=== PATIENT | male | born 1965 | race Caucasian/White ===

== ENCOUNTER 2022-11-19 13:41 | Emergency (ER) | payer MEDICAID, SELFPAY ==
[2022-11-19 13:43] VITALS: BP 169/82; PULSE 98; RESP 18; TEMP 36.2; O2SAT 98; BMI 26.9
--- NOTE | 2022-11-19 13:48 | ED.VIS.BACK ---
HPI History of Present Illness Chief Complaint: Neuro S/Sx [facility] Medical History (Updated 11/19/22 @ 13:52 by Vicky Hastings) Arthritis Bulging disc Diabetes Neuropathy Home Medications amitriptyline 25 mg tablet 25 mg PO DAILY PRN sleep 11/19/22 [History Last Taken Unknown] duloxetine 30 mg capsule,delayed release 30 mg PO DAILY 11/19/22 [History Last Taken Unknown] glipizide 5 mg tablet 5 mg PO DAILY 11/19/22 [History Last Taken Unknown] Allergy/AdvReac Type Severity Reaction Status Date / Time No Known Allergies Allergy Verified 11/19/22 13:43 Family History (Updated 11/19/22 @ 13:52 by Vicky Hastings) Father Diabetes Social History (Updated 11/19/22 @ 13:52 by Vicky Hastings) household members: none current occupational status: employed Smoking Status: Current every day smoker tobacco type: cigarettes EXAM Physical Exam Const Vital Signs: 11/19/22 13:43 11/19/22 13:49 11/19/22 13:53 Temperature 97.1 F L Temperature Source Temporal Pulse Rate 98 Respiratory Rate 18 Respiratory Effort Normal Blood Pressure 169/82 H 166/84 H Blood Pressure Mean 111 111 Pulse Ox 98 Oxygen Delivery Method Room Air Room Air 11/19/22 14:45 11/19/22 16:40 Temperature Temperature Source Pulse Rate 83 76 Respiratory Rate 18 18 Respiratory Effort Blood Pressure 176/88 H Blood Pressure Mean 117 Pulse Ox 95 Oxygen Delivery Method Room Air MDM MDM MDM Narrative Medical decision making narrative: HISTORY OF PRESENT ILLNESS: 57-year-old male here with concern for decreased strength in the left hand, noted blurry vision right eye as well as cough as well as pain to his back and legs and dizziness. He states visual changes started approximatley 1 week ago. He notes other associated symptoms started shortly thereafter. LKW 1 week ago. Since then symptoms have been constant. NO dizziness currently. Denies any head trauma. Notes history of diabetes denies any history of heart attack, hyperlipidemia or hypertension. No family or personal hx of intracranial aneurysms. No hx of connective tissue disorders. Patient denies any saddle anesthesia, urinary retention, bowel or bladder incontinence, lower extremity weakness, fever or IV drug use, no recent spinal manipulation or surgery, no recent urinary catheterization. REVIEW OF SYSTEMS: Pertinent positives: Dizziness, left hand weakness, blurry vision, back pain Pertinent negatives: Head trauma PHYSICAL EXAM: Nursing triage notes reviewed, Vital signs reviewed Constitutional: please see mdm HENT: MMM Eyes: Pupils equal round and reactive to light, Extraocular muscles intact, visual basilio intact (no visual field deficits). POCUS ultrasound showed no evidence of vitreous hemorrhage or retinal detachment. Visual acuity 20/100 OS, 20/50 OD. scleral non-injected. Neck: No stridor, no JVD, full neck ROM Lungs: Clear to auscultation, No wheezing or rales. No increased work of breathing, no conversational dyspnea, no accessory muscle use, no nasal flaring. No respiratory distress noted Heart: Regular rate and rhythm, No murmurs, No rubs and No gallops, 2+ distal pulses (radial, femoral, posterior tibial) in all extremities Abdomen: Soft, there is no tenderness, rigidity, rebound or guarding, no obvious peritoneal signs, no palpable pulsatile abdominal masses, no auscultated abdominal bruit : No CVAT Extremities: No edema Neuro: N alert and oriented x3, neuro exam at baseline, cranial nerves II through XII are intact. No pain with extraocular muscle movement. There is negative test of skew. 5 of 5 strength in upper and lower extremities in flexion extension. Intact sensation to light touch in upper and lower extremity dermatomes. No truncal or extremity ataxia. No dysdiadochokinesia. Normal gait. 2+ reflexes in upper and lower extremities. No meningeal signs. Negative Babinski. NIH of 0. Intact sensation L1-S1 dermatomal distributions. Intact 5/5 strength in hip flexion (T12-L3). Knee extension (L2-L4). Ankle dorsiflexion (L4-L5). Ankle plantar flexion (S1). Great toe extension (L5). 2+ patellar and Achilles DTRs. Skin: No rash or lesions noted MEDICAL DECISION MAKING: Chief Complaint: Right-sided changes in vision, back pain External records reviewed: No recent ED visits or hospitalizations noted Factors affecting care: Type 2 diabetes Social determinants of health: positive marijuana use History obtained from others: none Consults: none ALL IMAGES (IF OBTAINED) HAVE BEEN PERSONALLY REVIEWED AND INTERPRETED BY MYSELF. EKG with normal sinus rhythm, normal axis, no intervals, no STEMI, no atrial fibrillation CBC without leukocytosis, severe anemia, no thrombocytopenia. No coagulopathy BMP with mild hyponatremia otherwise no significant electrolyte abnormalities, no anion gap, no acute kidney injury Troponin is negative, no evidence of myocardial ischemia I have personally reviewed the patient's chest x-ray. Chest x-ray is unremarkable for pulmonary edema, pneumothorax, pneumonia or focal cardiopulmonary abnormality. COVID/flu negative MDM Narrative: Patient was initially hypertensive, otherwise hemodynamically stable. I considered the following differential diagnosis: ICH, large vessel occlusion, retinal detachment, vitreous hemorrhage CVA, TIA I obtained a broad lab and imaging work-up to further elucidate the etiology of the patient's complaints. POCUS ultrasound showed no evidence of vitreous hemorrhage or retinal detachment. EKG was nonischemic, no arrhythmia genic, no A-fib Labs without evidence of significant anemia, electrolyte abnormalities, coagulopathy or myocardial ischemia to explain the patient's symptoms. CTA of the head and neck shows no acute vascular injury, ICH, mass etc Discussed patient's risk and benefits of CVA TIA and need for definitive testing such as MRI as well as further risk factor modification. I offered the patient admission for this testing however he refused. Stating he would prefer to follow-up as an outpatient. He was alert and orient x3 and displayed appropriate capacity to make his own medical decisions and chose to be discharged home with close outpatient follow-up. He agreed to take a daily aspirin to return if symptoms changed or worsen to follow-up with primary care physician for outpatient evaluation and follow-up including outpatient MRI. The patient and/or family, caregivers express understanding. The patient and/or family, caregivers agrees with the plan. Shared decision making: I will have a discussion with the patient and or visitors regarding risk/benefits of further testing or admission. They will be made aware of of the risk/benefits inherent in this decision they will be given the opportunity to voice understanding. Total critical care time today provided was at least 0 minutes. This excludes separately billable procedures. Critical care time (if documented) is secondary to the patient having high probability of clinically significant/life threatening deterioration in the patient's condition which required my urgent intervention. Impression: 1. Visual changes 2. Dizziness 3. Back pain Dispo: discharge Lab Data Attestation: I reviewed the patient's lab results. Labs: Laboratory Results - last 24 hr 11/19/22 14:30 WBC 9.1 RBC 4.68 Hgb 14.2 Hct 42.1 MCV 90.0 MCH 30.3 MCHC 33.7 RDW Std Deviation 43.1 RDW Coeff of [place] 13.2 Plt Count 260 MPV 9.8 Immature Gran % (Auto) 0.300 Neut % (Auto) 67.7 Lymph % (Auto) 23.7 [place] % (Auto) 6.6 Eos % (Auto) 1.2 Baso % (Auto) 0.5 Absolute Neuts (auto) 6.2 Absolute Lymphs (auto) 2.16 Nucleated RBC % 0 PT 12.7 INR 1.0 APTT 27.5 Sodium 132 L Potassium 3.9 Chloride 100 Carbon Dioxide 26.0 Anion Gap 6 BUN 10 Creatinine 1.03 Estim Creat Clear Calc 96.85 Est GFR (MDRD) Af Amer 96 Est GFR (MDRD) Non-Af 80 BUN/Creatinine Ratio 9.7 L Glucose 142 H Calcium 8.9 Troponin I High Sens 20 Radiography Chest X-Ray - ED: Read by ED Physician Diagnostic Testing: Clinical Impression(s) from Imaging Studies Chest X-Ray 11/19/22 14:42 IMPRESSION: Hyperinflation. The lungs are clear. Electronically Signed: Guru Pinedo MD at 15:07 EDT , Head/Neck CTA 11/19/22 15:50 IMPRESSION: Moderate atherosclerotic changes of the extracranial carotids without evidence for hemodynamically significant stenosis. utilizing NASCET criteria No significant involvement of vertebral arteries. Mild atherosclerotic disease of the intracranial vessels Electronically Signed: Christoph Blevins MD at 16:19 EDT , Discharge Plan Triage Chief Complaint: Neuro S/Sx Other Complaint: Back Cough Vision Prob ED Provider: Sohan Martin Dx/Rx/DC Orders Instructions: ED Blurred Vision Prescriptions: No Action amitriptyline 25 mg tablet 25 mg PO DAILY PRN (Reason: sleep) Patient Comments: Take 0.5-1 tablets by mouth at bedtime as needed for sedation. glipizide 5 mg tablet 5 mg PO DAILY Patient Comments: Take 1 tablet by mouth once daily. duloxetine 30 mg capsule,delayed release(DR/EC) 30 mg PO DAILY Patient Comments: Take 1 capsule by mouth once daily. Primary Care Provider: Daniela Hernandez NP Referrals: Alexander Johnson MD [Med Staff - Active Staff] - Brennan Ponce MD [Med Staff - Field Administrator] - Activity Restrictions/Additional Instructions: Thank you for trusting us with your care today! Please follow with the [facility] for outpatient ophthalmology evaluation [address] [phone] Please return to the emergency department if your symptoms change or worsen. Please follow with your primary care physician for further outpatient evaluation and management. Disposition Disposition: Home, Self Care Discharge Date/Time: 11/19/22 16:42
[2022-11-19 13:49] VITALS: BP 166/84
[2022-11-19 13:52] VITALS: BMI 27.6
--- NOTE | 2022-11-19 14:19 | EKG12_ITS ---
Test Reason : Blood Pressure : / mmHG Vent. Rate : 086 BPM Atrial Rate : 086 BPM P-R Int : 148 ms QRS Dur : 084 ms QT Int : 356 ms P-R-T Axes : 032 080 075 degrees QTc Int : 426 ms Normal sinus rhythm Septal infarct , age undetermined Abnormal ECG Confirmed by DAKOTAH THEODORE, IMELDA ([id number]), commissioning editor RADHA LUDWIG ([id number]) on 11/25/2022 10:45:04 AM Referred By: EDPHYS Confirmed By:TALA CLAIRE MD
--- NOTE | 2022-11-19 14:29 | NURSING ---
NO OLD EKG
[2022-11-19 14:38] LABS: Absolute Lymphocyte Count 2.16 X10^3/uL (0.83-4.51); Absolute Neutrophil Count 6.2 X10^3/uL (2.0-7.7); Basophil# 0.05 X10^3/uL; Basophil% 0.5 % (0-1); Eosinophil# 0.11 X10^3/uL; Eosinophils% 1.2 % (0-5); Hematocrit 42.1 % (40-54); Hemoglobin 14.2 g/dL (13.0-16.5); Lymphocyte # 2.16 X10^3/ul (0.83-4.51); Lymphocyte % 23.7 % (19-41); Mean Corp Hgb Conc 33.7 g/dL (32-36); Mean Corpuscular Hgb 30.3 pg (27.0-32.0); Mean Platelet Vol. 9.8 fl (6.2-12.0); Monocyte% 6.6 % (0-10); NRBC Flagged by Analyzer 0 % (0-5); Neutrophil # 6.16 X10^3/uL (2.7-7.7); Neutrophil % 67.7 % (47-70); Platelet Count 260 K/mm3 (150-450); RBC Distribution Width CV 13.2 % (11.6-14.6); RBC Distribution Width SD 43.1 fl (35.1-43.9); Red Blood Count 4.68 M/mm3 (4.6-6.2); White Blood Count 9.1 K/mm3 (4.4-11.0)
--- NOTE | 2022-11-19 14:42 | RAD_ITS ---
STUDY: X-RAY CHEST REASON FOR EXAM: Male, 57 years old. Visual field deficits TECHNIQUE: Single AP portable view of the chest. COMPARISON: None. FINDINGS: Hyperinflation. The lungs are clear. There is no demonstrated pleural abnormality. Normal size heart. Normal mediastinum and yen. Normal visualized pulmonary arteries. Normal visualized aortic arch and descending thoracic aorta. There are diffuse degenerative changes of the visualized thoracic spine. Normal visualized ribs, clavicles, and shoulders. There is no demonstrated abnormality of the visualized soft tissue structures of the upper abdomen. RAD/Chest 1 View (Portable) IMPRESSION: Hyperinflation. The lungs are clear. Electronically Signed: Guru Pinedo MD at 15:07 EDT ,
[2022-11-19 14:45] VITALS: BP 176/88; PULSE 83; RESP 18; O2SAT 95
[2022-11-19 14:48] LABS: Partial Thromboplast Time 27.5 Seconds (24.1-36.2); Prothrombin Time (Protime)PT. 12.7 SECONDS (11.7-14.9)
[2022-11-19 14:57] LABS: Anion Gap 6 (5-15); BUN 10 mg/dL (7-18); BUN/Creat Ratio 9.7 RATIO (10-20); Calcium,Total 8.9 mg/dL (8.5-10.1); Chloride 100 mmol/L (98-107); Creatinine, Serum 1.03 mg/dL (0.70-1.30); EST Glomerular Filtration Rate 80 mL/min (>60); Est Glom Filt Rate - Afr Amer 96 mL/min (>60); Estimated Creatinine Clearance 96.85 ml/min; Glucose 142 mg/dL (74-106); Potassium 3.9 mmol/L (3.5-5.1); Sodium Level 132 mmol/L (136-145); Troponin-I HS 20 pg/mL (3.0-78.0)
--- NOTE | 2022-11-19 15:50 | CT_ITS ---
STUDY: CTA HEAD AND NECK WITH CONTRAST REASON FOR EXAM: Male, 57 years old. right sided visual changes RADIATION DOSAGE (If Supplied By Facility): CTDIvol = ( 32.66 ) mGy, DLP = ( 1736.41 ) mGycm TECHNIQUE: CT angiography was performed with a multi-detector CT scanner. Data acquisition was obtained from the skull base through the vertex following intravenous administration of IV 100mL [id number]-370. MIP images were reconstructed from the axial data set. Post-processing of the angiographic images was performed, with multiplanar reformation and 3D reconstruction. Individualized dose optimization techniques were used for this CT. COMPARISON: No relevant priors. FINDINGS: Normal bilateral petrous carotid arteries. Minor calcific plaquing of the right cavernous carotid artery with a normal supraclinoid bifurcation. Minor calcific plaquing of the left cavernous carotid artery with a normal supraclinoid bifurcation. Normal right A1 segments of the anterior cerebral artery. Normal left A1 segments of the anterior cerebral artery. Anterior communicating artery not visualized consistent with normal variant Normal bilateral A2 segments of the anterior cerebral arteries. Normal right M1 and M2 segments of the middle cerebral arteries, with a normal M1 bifurcation. Normal left M1 and M2 segments of the middle cerebral arteries, with a normal M1 bifurcation. Hypoplastic right posterior communicating artery (PCOM). Left posterior communicating artery not visualized consistent variant Normal bilateral vertebral arteries. Normal basilar artery with a normal basilar bifurcation. The visualized bilateral superior cerebellar (SCA) arteries are normal. Normal bilateral P1, P2 and visualized P3 segments of the posterior cerebral arteries. There is no demonstrated aneurysm of the [place] of [place]. There is no demonstrated abnormality of the visualized brain. AORTIC ARCH: Normal visualized aortic arch. Normal origins of the brachiocephalic, left common carotid, and left subclavian arteries. RIGHT CAROTID ARTERIES: Normal right common carotid artery (CCA). Moderate calcific plaquing of right common carotid bulb. Moderate calcific plaquing of the origin of the right internal carotid (ICA) artery without a hemodynamically significant stenosis. Normal visualized cervical portion of the right internal carotid artery. Normal origin of the right external carotid artery (ECA). LEFT CAROTID ARTERIES: Normal left common carotid artery (CCA). Moderate calcific plaquing of the left common carotid bulb. Moderate calcific plaquing of the origin of the left internal carotid (ICA) artery without a hemodynamically significant stenosis. Normal visualized cervical portion of the left internal carotid artery. Normal origin of the left external carotid artery (ECA). VERTEBRAL ARTERIES: Right vertebral is dominant and normal caliber. Diffusely narrowed left vertebral terminating in PICA consistent with normal variant CT/CTA Head AND Neck W/ Contrast IMPRESSION: Moderate atherosclerotic changes of the extracranial carotids without evidence for hemodynamically significant stenosis. utilizing NASCET criteria No significant involvement of vertebral arteries. Mild atherosclerotic disease of the intracranial vessels Electronically Signed: Christoph Blevins MD at 16:19 EDT ,
[2022-11-19 16:40] VITALS: PULSE 76; RESP 18
[2022-11-24 08:52] LABS: Bedside Glucose 174 mg/dL (74-106)
== END 2022-11-19 16:42 | disposition home or self-care (01) ==
PROVIDERS: Emergency Provider Emergency Medicine; PCP Internal Medicine; Visit Provider Emergency Medicine
DX: H53.9 Unspecified visual disturbance (principal); E11.40 Type 2 diabetes mellitus with diabetic neuropathy, unspecified; R42 Dizziness and giddiness; M54.9 Dorsalgia, unspecified; M79.604 Pain in right leg; M79.605 Pain in left leg; F17.210 Nicotine dependence, cigarettes, uncomplicated; Z79.84 Long term (current) use of oral hypoglycemic drugs; Z79.899 Other long term (current) drug therapy
CPT/HCPCS: 70496; 70498; 71045; 80048; 82962; 84484; 85025; 85610; 85730; 87428; 93005; 99285; Q9967

== ENCOUNTER 2022-12-01 14:36 | Inpatient (IN) | payer MEDICAID, SELFPAY ==
[2022-12-01] VITALS (8 sets, daily range): BP systolic 157–188; BP diastolic 81–94; PULSE 60–74; RESP 14–20; TEMP 35.9–36.7; O2SAT 97–98; BMI 25.8; BMI 25.2; BMI 25.5
[2022-12-01 14:52] LABS: Absolute Lymphocyte Count 1.66 X10^3/uL (0.83-4.51); Absolute Neutrophil Count 11.6 X10^3/uL (2.0-7.7); Basophil# 0.05 X10^3/uL; Basophil% 0.4 % (0-1); Eosinophil# 0.02 X10^3/uL; Eosinophils% 0.1 % (0-5); Hematocrit 43.5 % (40-54); Hemoglobin 14.6 g/dL (13.0-16.5); Lymphocyte # 1.66 X10^3/ul (0.83-4.51); Lymphocyte % 11.9 % (19-41); Mean Corp Hgb Conc 33.6 g/dL (32-36); Mean Corpuscular Volume 89.3 fL (80-94); Mean Platelet Vol. 10.1 fl (6.2-12.0); Monocyte# 0.52 X10^3/uL; Monocyte% 3.7 % (0-10); NRBC Flagged by Analyzer 0 % (0-5); Neutrophil # 11.64 X10^3/uL (2.7-7.7); Neutrophil % 83.3 % (47-70); Platelet Count 301 K/mm3 (150-450); RBC Distribution Width CV 13.4 % (11.6-14.6); RBC Distribution Width SD 43.8 fl (35.1-43.9); Red Blood Count 4.87 M/mm3 (4.6-6.2)
--- NOTE | 2022-12-01 14:53 | RAD_ITS ---
STUDY: X-RAY CHEST REASON FOR EXAM: Male, 57 years old. Chest pain and shortness of breath. TECHNIQUE: Single AP portable view of the chest. COMPARISON: None. FINDINGS: The lungs are clear and expanded. There is no demonstrated pleural abnormality. Normal size heart. Normal mediastinum and yen. Normal visualized pulmonary arteries. Normal visualized aortic arch and descending thoracic aorta. There are degenerative changes of the visualized thoracic spine. Normal visualized ribs, clavicles, and shoulders. There is no demonstrated abnormality of the visualized soft tissue structures of the upper abdomen. RAD/Chest 1 View (Portable) IMPRESSION: Normal x-ray examination of the chest. Electronically Signed: Guru Pinedo MD at 15:08 EDT ,
[2022-12-01 15:11] LABS: Anion Gap 8 (5-15); BUN 14 mg/dL (7-18); BUN/Creat Ratio 14.1 RATIO (10-20); Calcium,Total 9.4 mg/dL (8.5-10.1); Chloride 100 mmol/L (98-107); Creatinine, Serum 0.99 mg/dL (0.70-1.30); EST Glomerular Filtration Rate 83 mL/min (>60); Est Glom Filt Rate - Afr Amer 101 mL/min (>60); Glucose 215 mg/dL (74-106); Potassium 4.2 mmol/L (3.5-5.1); Sodium Level 133 mmol/L (136-145); Troponin-I HS (w/2H Reflex) 87 pg/mL (3.0-78.0)
--- NOTE | 2022-12-01 15:25 | ED.VIS.CHEST ---
HPI History of Present Illness Chief Complaint: Chest Pain Informant: patient Onset/Context/Timing Onset: Today and Hours (5) Activity at onset: sudden Timing: Continuous Quality: Positive for Dull Location: Substernal Worsened By: Nothing Relieved By: Nothing Narrative Narrative: Patient presents with chest pain that began approximately 5 hours prior to arrival. Patient states he was being some screws into a camper when the pain began. Patient states it is constant. Patient describes the pain as dull. Patient states the pain is over the substernal area. Patient states nothing makes it worse and nothing makes it better. Patient admits to some diaphoresis and lightheadedness with the pain. Patient also admits to some blurred vision out of his right eye. Patient admits to a mild headache. Patient states the pain radiates into his neck and back. Patient is diabetic and a smoker but denies any other cardiac or PE risk factors. CVD Risk Factors: Positive for Diabetes and Smoking; Negative for Hypertension, Hypercholesterolemia or Family History 1' </=55 PE Risk Factors: Negative for Recent Travel/Surgery, Recent Immobilization, Prior DVT or PE, Cancer or OCP + Smoking + >/=35 PFSH PFSH Medical History Anxiety Arthritis Bulging disc Chest pain Diabetes Hypertension Myocardial infarct Neuropathy Osteoporosis Smoker Home Medications duloxetine 30 mg capsule,delayed release 60 mg PO DAILY pain 11/19/22 [History Last Taken 12/01/22] glipizide 5 mg tablet 10 mg PO DAILY diabetes 11/19/22 [History Last Taken 12/01/22 07:28] multivitamin (Daily Multi-Vitamin tablet) 1 tab PO DAILY supplement 12/01/22 [History Last Taken 12/01/22 07:30] pregabalin 50 mg capsule 50 mg PO BID 12/01/22 [History Last Taken Unknown] Allergy/AdvReac Type Severity Reaction Status Date / Time No Known Allergies Allergy Verified 11/19/22 13:43 Family History (Updated 11/19/22 @ 13:52 by Vicky Hastings) Father Diabetes Family History no significant family his no significant family history Surgical History no surgical history no surgical history Social History household members: none current occupational status: employed Smoking Status: Current every day smoker tobacco type: cigarettes ROS ROS ED Constitutional Constitutional ED: Denies chills or fever(s) Eyes Eyes: Reports blurry vision right; Denies change in vision ENT ENT ED: Denies rhinorrhea or sore throat Cardiovascular Cardiovascular: Reports chest pain; Denies palpitations Respiratory/Chest Respiratory/Chest: Denies cough or dyspnea Gastrointestinal Gastrointestinal: Reports nausea; Denies abdominal pain or vomiting Genitourinary Genitourinary ED: Denies dysuria or hematuria Musculoskeletal Musculoskeletal: Reports back pain and neck pain Integumentary Denies abscess or rash Neurologic Neurologic: Reports headache(s); Denies weakness Allergic/Immunologic Allergic/Immunologic ED: Denies mouth swelling or urticaria EXAM Physical Exam Const Vital Signs: 12/01/22 14:38 12/01/22 15:24 12/01/22 15:24 Temperature 96.6 F L Temperature Source Temporal Pulse Rate 63 62 Respiratory Rate 14 Blood Pressure 186/83 H 177/91 H Blood Pressure Mean 117 119 Pulse Ox 98 Oxygen Delivery Method Room Air Room Air 12/01/22 15:59 12/01/22 16:07 12/01/22 17:40 Temperature Temperature Source Pulse Rate 60 64 74 Respiratory Rate 18 Blood Pressure 188/94 H 178/87 H 175/94 H Blood Pressure Mean 121 Pulse Ox 98 Oxygen Delivery Method Room Air Positive well nourished, well developed and obese General Appearance ED: well developed Nutritional Appearance: obese HEENT normocephalic and atraumatic Eyes PERRL and EOMs intact bilaterally Neck supple and no JVD Chest Wall palpation of chest normal Resp normal respiratory effort and clear to auscultation bilaterally Effort and Inspection: Negative for respiratory distress Cardio regular rate and regular rhythm GI normal to inspection, nondistended, normoactive bowel sounds, soft to palpation, non-tender and non-distended Extremity normal to inspection General Extremety ED: Negative for edema or tenderness General Extremity: Negative for edema Neuro oriented x3, CN's II-XII intact bilaterally and no sensory deficits noted Sensorium / Orientation: awake and alert Motor Exam: strength 5/5 throughout Psych mental status grossly normal Heart Score History: Slightly/Non-Suspicious ECG: Normal Age: >45 - <65 years Risk Factors: 1 or 2 Risk Factors Score: 2 MDM MDM MDM Narrative Medical decision making narrative: Differential diagnosis includes cardiac dysrhythmia, cardiac ischemia, gastritis, reflux, pancreatitis, pneumonia, pneumothorax, electrolyte abnormality, and anxiety. EKG will be obtained to assess for cardiac dysrhythmia and cardiac ischemia. Chest x-ray will be obtained to assess for pneumonia and pneumothorax. CBC will be obtained to assess for leukocytosis and anemia. Basic metabolic profile will be obtained to assess for electrolyte abnormality and renal function. Lipase will be obtained to assess for pancreatitis. High-sensitivity troponin will be obtained to assess for cardiac ischemia. Patient has a Wells score of 0 and has no PE risk factors. I do not feel this is from a pulmonary embolism. Lab Data Attestation: I reviewed the patient's lab results. Lab results narrative: CBC was reviewed. There is a mild leukocytosis of 14.0. Basic metabolic profile was reviewed and is essentially within normal limits for mildly elevated glucose of 215. High-sensitivity troponin was reviewed and was 87. Reviewed and was normal at 56. 2-Hour repeat high-sensitivity troponin was reviewed and was elevated at 1414. Labs: Laboratory Results - last 24 hr 12/01/22 12/01/22 12/01/22 14:45 16:50 18:20 WBC 14.0 H RBC 4.87 Hgb 14.6 Hct 43.5 MCV 89.3 MCH 30.0 MCHC 33.6 RDW Std Deviation 43.8 RDW Coeff of Shannon 13.4 Plt Count 301 MPV 10.1 Immature Gran % (Auto) 0.600 Neut % (Auto) 83.3 H Lymph % (Auto) 11.9 L [place] % (Auto) 3.7 Eos % (Auto) 0.1 Baso % (Auto) 0.4 Absolute Neuts (auto) 11.6 H Absolute Lymphs (auto) 1.66 Nucleated RBC % 0 PT 12.7 INR 1.0 APTT 26.7 Sodium 133 L Potassium 4.2 Chloride 100 Carbon Dioxide 25.0 Anion Gap 8 BUN 14 Creatinine 0.99 Est GFR (MDRD) Af Amer 101 Est GFR (MDRD) Non-Af 83 BUN/Creatinine Ratio 14.1 Glucose 215 H Hemoglobin A1c 6.3 H Calcium 9.4 Troponin I High Sens 87 H 1414 H* Lipase 56 TSH 1.12 Radiography Chest X-Ray - ED: 1 View, Read by ED Physician, Read by Radiologist and No Acute Disease Diagnostic Testing: Clinical Impression(s) from Imaging Studies Chest X-Ray 12/01/22 14:53 IMPRESSION: Normal x-ray examination of the chest. Electronically Signed: Guru Pinedo MD at 15:08 EDT , Portable 1 view chest x-ray was obtained. On my independent interpretation, lung basilio are clear. There is normal cardiac silhouette. Bony thorax is normal. There is no acute process noted. Radiologist also interpreted the x-ray and agrees. EKG Initial EKG: Attestation: I personally reviewed and interpreted this EKG as follows: Interpretation: Sinus Rhythm (60) and Non-Specific ST Changes Comments: EKG was obtained. On my independent interpretation, it showed a normal sinus rhythm with a rate of 60. DC interval, QRS interval, and QTc intervals were all normal. [place] was normal. There are no acute ST or T wave changes. Prior EKG tracings: available for review Prior: Unchanged (11/19/2022) Management Discussion w/another healthcare provider: Hospitalist Treatment and Re-Evaluation :: Patient was given aspirin and sublingual nitroglycerin initially. Patient had minimal relief with this. Patient was given a dose of morphine. Patient states this improved his pain from a 8 to a 4. Patient was given a repeat dose of morphine. Patient was started on heparin. Case was discussed with the hospitalist. He will admit the patient to his service. Patient understood and was agreeable with this plan. All questions were answered. Critical Care Time Critical Care Time: Yes Critical care time (excluding procedures): 30-74 minutes (33), Discussing w/Patient &/or Family/[employer], Discussing w/Consultants, Arranging Admission or Transfer and Performing Direct Patient Care at Bedside Discharge Plan Dx/Rx/DC Orders Clinical Impression: NSTEMI, initial episode of care, Elevated blood pressure reading, Chest pain Disposition Disposition: Acute Care [facility] Discharge Date/Time: 12/01/22 18:56
[2022-12-01] MEDS: Aspirin 81 MG TAB.CHEW 324 MG PO (15:46)
[2022-12-01] MEDS: Nitroglycerin SL (ED/IMG/CATH) 0.4 MG TABLET SL ×2 (15:59→16:07)
[2022-12-01 16:05] LABS: Lipase 56 U/L (13-75)
[2022-12-01 16:49] LABS: Reflex Troponin-HS? (from REC) Y
[2022-12-01] MEDS: Morphine 4 MG/ML Syringe IV ×2 (16:57→22:44)
[2022-12-01 17:26] LABS: Troponin-I HS 1414 pg/mL (3.0-78.0)
--- NOTE | 2022-12-01 18:18 | HP.PCM.HOS_ITS ---
HPI - General General Date of Admission: 12/01/22 Date of Service: 12/01/22 Chief Complaint: Chest pain HPI Narrative AIDE CALL, is a 57 M with history of type 2 diabetes with peripheral neuropathy, current smoker who presented to [facility] ED on 12/01/2022 with chest pain. Patient seen at bedside in ED. Sitting comfortably in bed, conversing normally, no acute distress. Patient states the chest pain has been ongoing over the last few days. Significantly worsened this morning, prompting him to come to the ED for further evaluation. He does report some chest pain and shortness of breath with exertion over the past several weeks. Patient is a current smoker, smokes 1 to 1.5 packs of cigarettes per day. Also has known type 2 diabetes, has been taking his glipizide as prescribed. Patient has a history of alcohol use disorder, states he has now been sober for 5 years. Denies any other illicit drug use. Patient notes that he has a very strong family history of cardiac disease. His father had a heart attack at age 48, in his late 50s of complications from poorly controlled diabetes. Had 2 aunts that in their 40s of heart attacks as well. Patient currently denies any chest pain. He denies any shortness of breath, lightheadedness or dizziness, fevers or chills. No other acute concerns currently. Vitals in ED notable for hypertension, otherwise unremarkable. Labs before WBC count 14, hemoglobin 14.6, platelets 301, sodium 133, potassium 4.2, BUN 14, creatinine 0.99, glucose 215, troponin 87 to 1414. Chest x-ray was nonacute. EKG showed frequent PVCs, otherwise sinus rhythm, no notable ST changes. [facility] Medical History Anxiety Arthritis Bulging disc Chest pain Diabetes Hypertension Myocardial infarct Neuropathy Osteoporosis Smoker Home Medications duloxetine 30 mg capsule,delayed release 60 mg PO DAILY pain 11/19/22 [History Last Taken 12/01/22] glipizide 5 mg tablet 10 mg PO DAILY diabetes 11/19/22 [History Last Taken 12/01/22 07:28] multivitamin (Daily Multi-Vitamin tablet) 1 tab PO DAILY supplement 12/01/22 [History Last Taken 12/01/22 07:30] pregabalin 50 mg capsule 50 mg PO BID 12/01/22 [History Last Taken Unknown] Allergy/AdvReac Type Severity Reaction Status Date / Time No Known Allergies Allergy Verified 11/19/22 13:43 Family History (Updated 11/19/22 @ 13:52 by Vicky Hastings) Father Diabetes Family History no significant family his Surgical History no surgical history Social History household members: none current occupational status: employed Smoking Status: Current every day smoker tobacco type: cigarettes ROS Constitutional Constitutional: Denies change in weight, chills, fatigue, fever(s) or weakness Eyes Eyes: Denies change in vision Cardiovascular Cardiovascular: Reports chest pain and dyspnea on exertion; Denies edema, lightheadedness, palpitations, rapid heart rate or syncope Respiratory/Chest Respiratory/Chest: Denies cough, shortness of breath at rest or wheezing Gastrointestinal Gastrointestinal: Denies abdominal pain Musculoskeletal Musculoskeletal: Denies back pain Neurologic Neurologic: Denies confusion, dizziness, headache(s), numbness or paresthesias Endocrine Endocrinology: Denies cold intolerance, heat intolerance, polydipsia or polyuria Vital Signs Vital Signs Vital Signs: 12/01/22 14:38 12/01/22 15:24 12/01/22 15:24 Temperature 96.6 F L Temperature Source Temporal Pulse Rate 63 62 Respiratory Rate 14 Blood Pressure 186/83 H 177/91 H Blood Pressure Mean 117 119 Pulse Ox 98 Oxygen Delivery Method Room Air Room Air 12/01/22 15:59 12/01/22 16:07 12/01/22 17:40 Temperature Temperature Source Pulse Rate 60 64 74 Respiratory Rate 18 Blood Pressure 188/94 H 178/87 H 175/94 H Blood Pressure Mean 121 Pulse Ox 98 Oxygen Delivery Method Room Air Weight Weight: 96.3 kg Body Mass Index (BMI) 25.8 Physical Exam Const alert, oriented x3, no apparent distress, average body habitus, healthy appeari ng and well nourished General Appearance: cooperative, comfortable, well kempt and well developed HEENT normocephalic, head/scalp atraumatic, hearing grossly normal bilaterally, nasal mucous membranes and turbinates normal and moist oral mucous membranes Eyes PERRL, EOMs intact bilaterally and conjunctivae normal Neck full ROM, no lymphadenopathy and supple Lymph Lymphatic: no lymphadenopathy noted Chest inspection of chest normal Resp normal respiratory effort, normal air movement, no use of accessory muscles and clear to auscultation bilaterally Cardio regular rate, regular rhythm, no murmurs and peripheral pulses 2+ throughout GI normal to inspection, nondistended, normoactive bowel sounds, soft to palpation, non-tender and non-distended Back/Spine normal ROM Extremity normal to inspection, full ROM and no pedal edema Skin no rashes or lesions noted Psych mental status grossly normal Results Lab / Micro Data 12/01/22 14:45 12/01/22 14:45 Labs: Laboratory Results - last 24 hr 12/01/22 14:45: WBC 14.0 H, RBC 4.87, Hgb 14.6, Hct 43.5, MCV 89.3, MCH 30.0, MCHC 33.6, RDW Std Deviation 43.8, RDW Coeff of Shannon 13.4, Plt Count 301, MPV 10.1, Immature Gran % (Auto) 0.600, Neut % (Auto) 83.3 H, Lymph % (Auto) 11.9 L, [place] % (Auto) 3.7, Eos % (Auto) 0.1, Baso % (Auto) 0.4, Absolute Neuts (auto) 11.6 H, Absolute Lymphs (auto) 1.66, Nucleated RBC % 0, Sodium 133 L, Potassium 4.2, Chloride 100, Carbon Dioxide 25.0, Anion Gap 8, BUN 14, Creatinine 0.99, Est GFR (MDRD) Af Amer 101, Est GFR (MDRD) Non-Af 83, BUN/Creatinine Ratio 14.1, Glucose 215 H, Calcium 9.4, Troponin I High Sens 87 H, Lipase 56 12/01/22 16:50: Troponin I High Sens 1414 H* Radiology Impression Chest X-Ray 12/01/22 14:53 IMPRESSION: Normal x-ray examination of the chest. Electronically Signed: Guru Pinedo MD at 15:08 EDT , Assessment & Plan Assessment/Plan (1) NSTEMI, initial episode of care: PLAN: Plan Patient is a 57-year-old male with history of type 2 diabetes with peripheral neuropathy, current smoker who presented to [facility] ED on 12/01/2022 with chest pain. 1. NSTEMI High suspicion for type I NSTEMI given chest pain with radiation to left arm, reported history of apparent chest pain/dyspnea on exertion recently, significant risk factors of strong family history of early coronary artery disease (father?UT at 48, multiple aunts?UT in their 40s), type 2 diabetes, cur rent smoker. Troponin trend 87 to 1414 to 4325. No significant EKG findings on admit. Chest pain now resolved. ? Admit under inpatient status to PCU. Cardiology consulted. N.p.o. at midnight for likely left heart cath with possible intervention. Continue heparin drip. Continue aspirin and statin. A1c, lipid profile, TSH ordered. Echo ordered. We will start Coreg 6.25 twice daily given patient is hypertensive on admit, heart rate in the 70s. Likely plan to add low-dose MEGA inhibitor prior to discharge. 2. Type 2 diabetes with peripheral neuropathy ? Only on home glipizide 5 mg daily. Patient reports peripheral neuropathy for about the last 10 years, suspect this may be multifactorial in setting of diabetes with possible lumbar radiculopathy also contributing. A1c 6.3% on admi t. We will start sliding scale insulin while inpatient. Continue home gabapentin, duloxetine. 3. Current smoker ? Smokes about 1 to 1.5 packs/day currently. Hold on nicotine replacement for now, can provide for patient post left heart cath tomorrow if requested. DVT prophylaxis: Heparin drip CODE STATUS: Full code, verified Expected disposition: Home, 2 to 3 days Total clinical time spent by myself addressing the patient's medical issues, reviewing all the data, and collaborating with patient's care team: 55 minutes. Charges/Coding Visit Charges Inpatient E&M: 74216 Init Hosp L2
[2022-12-01] MEDS: Ondansetron 4 MG/2 ML Vial IV (18:25)
[2022-12-01] MEDS: HEPARIN/D5w 25,000 UNITS 25,000 UNITS/250 ML IV.SOLN. 10 UNITS CONT INF (18:25)
[2022-12-01] MEDS: Heparin Injection (Vial) 5,000 UNIT/ML VIAL 4000 UNIT IV (18:25)
[2022-12-01 18:40] LABS: Partial Thromboplast Time 26.7 Seconds (24.1-36.2); Prothrombin Time (Protime)PT. 12.7 SECONDS (11.7-14.9)
--- NOTE | 2022-12-01 18:57 | ECHOD_ITS ---
Reason For Study: CAD/ASHD Procedure This was a 2D Doppler, Color Flow transthoracic echocardiogram. Exam performed portable in patient room. Left Ventricle Normal LV size. The left ventricular ejection fraction is 45 %. Infero-Basal: Akinetic. There are regional wall motion abnormalities as specified. Right Ventricle Normal RV size. Normal systolic function. Atria Normal left atrium. Normal right atrium. Mitral Valve Mild focal mitral valve calcification of the anterior leaflet. Mild (1+) mitral valve insufficiency. Tricuspid Valve Normal tricuspid valve. Aortic Valve Trisinus/trileaflet aortic valve. Mild focal aortic valve calcification. Pulmonic Valve Normal pulmonic valve. Great Vessels Normal aortic root. The pulmonary artery is normal size. Normal inferior vena cava. Pericardium/Pleural No pericardial effusion. MMode/2D Measurements & Calculations LVIDd: 5.8 cm IVSd: 1.2 cm Ao root diam: 3.7 cm LVIDs: 4.4 cm LVPWd: 1.0 cm FS: 24.4 % LAV(MOD-bp): 76.7 ml LA A4 area: 22.6 cm2 LA dimension(2D): 4.2 cm LAV(MOD-bp) Indexed: 33.8 ml/m2 LAV(MOD-sp2): 77.4 ml LAV(MOD-sp4): 73.7 ml TAPSE: 2.6 cm RA A4 area: 15.6 cm2 Time Measurements MV dec time: 0.15 sec Doppler Measurements & Calculations MV E max du: 98.7 cm/sec Lat Peak E' Du: 9.5 cm/sec Med Peak E' Du: 11.6 cm/sec MV A max du: 56.7 cm/sec E/E' lat: 10.4 E/E' med: 8.5 MV E/A: 1.7 MV dec slope: 672.6 cm/sec2 Ao V2 max: 157.6 cm/sec LV V1 max: 119.0 cm/sec Ao max P.0 mmHg LV V1 max P.7 mmHg Ao V2 mean: 101.3 cm/sec LV V1 mean P.6 mmHg Ao mean P.8 mmHg LV V1 mean: 74.4 cm/sec Ao V2 VTI: 36.6 cm LV V1 VTI: 27.0 cm AV (velocity ratio): 0.74 PA V2 max: 89.3 cm/sec ECHO/Echo Complete Interpretation Summary The left ventricular ejection fraction is 45 %. Normal LV size. Infero-Basal: Akinetic. Mild (1+) mitral valve insufficiency. Mild focal mitral valve calcification of the anterior leaflet. Ordering Physician: Orlando Kirkland Referring Physician: Daniela Hernandez Performed By: Tierney Pat, FEDE, RVT
[2022-12-01 19:03] LABS: Hemoglobin A1c 6.3 % (3.8-5.6)
[2022-12-01 19:05] LABS: Thyroid Stim Hormone (TSH) 1.12 uIU/mL (0.358-3.74)
--- NOTE | 2022-12-01 19:28 | EKG12_ITS ---
Test Reason : CP ADMIT Blood Pressure : / mmHG Vent. Rate : 061 BPM Atrial Rate : 061 BPM P-R Int : 168 ms QRS Dur : 098 ms QT Int : 430 ms P-R-T Axes : 031 055 063 degrees QTc Int : 432 ms Normal sinus rhythm Anteroseptal infarct , age undetermined Abnormal ECG Confirmed by REHANA THEODORE, DAJA ([id number]), editorial cartoonist CHRISTY PIPER ([id number]) on 12/18/2022 2:28:42 PM Referred By: Confirmed By:DAJA KIMBALL MD
[2022-12-01 21:09] LABS: Cholesterol 241 mg/dL (200); High Density Lipoprotein 49 mg/dL; Triglycerides 252 mg/dL; Very Low Density Lipoprotein 50 mg/dL (5-40)
[2022-12-01] MEDS: Carvedilol 6.25 MG Tablet PO (21:27)
[2022-12-01 21:32] LABS: Troponin-I HS 4325 pg/mL (3.0-78.0)
[2022-12-01 22:32] LABS: Bedside Glucose 154 mg/dL (74-106)
[2022-12-01] MEDS: 0.9% Saline Lock 10 ML Syringe IV (22:44)
[2022-12-01] MEDS: Pregabalin 50 MG Capsule PO (22:44)
[2022-12-02] VITALS (8 sets, daily range): BP systolic 110–157; BP diastolic 61–88; PULSE 55–75; RESP 14–18; TEMP 36–36.8; O2SAT 95–99
[2022-12-02 00:03] LABS: Troponin-I HS 7138 pg/mL (3.0-78.0)
[2022-12-02] MEDS: Heparin Injection (Vial) 5,000 UNIT/ML VIAL IV (01:14)
[2022-12-02] MEDS: 0.9% Saline Lock 10 ML Syringe IV ×3 (03:18→11:48)
[2022-12-02] MEDS: Morphine 4 MG/ML Syringe IV ×2 (03:18→06:27)
[2022-12-02] MEDS: Insulin Lispro 100 UNIT/ML INSULN.PEN SC ×3 (03:18→16:22)
[2022-12-02 03:40] LABS: Bedside Glucose 197 mg/dL (74-106)
[2022-12-02 05:54] LABS: Absolute Lymphocyte Count 1.76 X10^3/uL (0.83-4.51); Absolute Neutrophil Count 11.9 X10^3/uL (2.0-7.7); Basophil# 0.05 X10^3/uL; Basophil% 0.3 % (0-1); Eosinophil# 0.02 X10^3/uL; Eosinophils% 0.1 % (0-5); Hematocrit 43.4 % (40-54); Hemoglobin 14.2 g/dL (13.0-16.5); Lymphocyte # 1.76 X10^3/ul (0.83-4.51); Lymphocyte % 12.1 % (19-41); Mean Corp Hgb Conc 32.7 g/dL (32-36); Mean Corpuscular Volume 88.8 fL (80-94); Mean Platelet Vol. 10.5 fl (6.2-12.0); Monocyte# 0.65 X10^3/uL; Monocyte% 4.5 % (0-10); NRBC Flagged by Analyzer 0 % (0-5); Neutrophil # 11.93 X10^3/uL (2.7-7.7); Neutrophil % 82.4 % (47-70); Platelet Count 312 K/mm3 (150-450); RBC Distribution Width CV 13.4 % (11.6-14.6); RBC Distribution Width SD 43.8 fl (35.1-43.9); Red Blood Count 4.89 M/mm3 (4.6-6.2); White Blood Count 14.5 K/mm3 (4.4-11.0)
--- NOTE | 2022-12-02 05:55 | EKG12_ITS ---
Test Reason : AM EKG Blood Pressure : / mmHG Vent. Rate : 057 BPM Atrial Rate : 057 BPM P-R Int : 166 ms QRS Dur : 096 ms QT Int : 460 ms P-R-T Axes : 054 079 070 degrees QTc Int : 447 ms Sinus bradycardia Septal infarct , age undetermined Abnormal ECG When compared with ECG of 01-DEC-2022 19:56, MANUAL COMPARISON REQUIRED, DATA IS UNCONFIRMED Confirmed by REHANA THEODORE, DAJA ([id number]), newspaper managing editor RADHA LUDWIG ([id number]) on 12/18/2022 1:11:00 PM Referred By: Confirmed By:DAJA KIMBALL MD
[2022-12-02] MEDS: Nitroglycerin Oint 1 INCH PACKET 0.5 INCH TD (06:35)
[2022-12-02 06:39] LABS: Magnesium 2.5 mg/dL (1.6-2.6)
[2022-12-02 07:02] LABS: Bedside Glucose 210 mg/dL (74-106)
[2022-12-02 07:22] LABS: Anion Gap 6 (5-15); BUN 11 mg/dL (7-18); BUN/Creat Ratio 13.8 RATIO (10-20); Chloride 100 mmol/L (98-107); EST Glomerular Filtration Rate 107 mL/min (>60); Est Glom Filt Rate - Afr Amer 129 mL/min (>60); Estimated Creatinine Clearance 128.09 ml/min; Glucose 216 mg/dL (74-106); Sodium Level 132 mmol/L (136-145); Troponin-I HS 11301 pg/mL (3.0-78.0)
--- NOTE | 2022-12-02 08:12 | PCM.CONS.C ---
Assessment & Plan Assessment/Plan (1) NSTEMI, initial episode of care: PLAN: He does present with a history of a non-ST elevation myocardial infarction with clinical findings suggestive thereof. My recommendations will be as follows. Continue aspirin Intravenous heparin Start beta-samara with carvedilol 6.25 mg twice a day High intensity statin For cardiac catheterization later today and depending on the findings further recommendations will be made Addendum: Cardiac catheterization demonstrated diffuse disease including high-grade diagonal vessel disease and high-grade mid circumflex artery disease with a totally occluded right coronary artery and a nondominant vessel. Will recommend PCI later this am (2) Hypertension: PLAN: His blood pressure is uncontrolled and my recommendation will be to continue with a beta-samara Add MEGA inhibitor Obtain echocardiogram to assess ventricular function Thank you for allowing me to participate in the care of your patient. Please don't hesitate to call if any issues arise. HPI Consult Data Date of Consult: 12/02/22 HPI Narrative HPI Narrative: AIDE CALL, is a 57 M who presents to the emergency room with chest discomfort described as a left-sided chest pressure radiating to his left arm. His chest discomfort has been going on over the last few days was significantly worsened in the morning and prompted him to come to the emergency room. He is a smoker, has a history of type 2 diabetes mellitus and has a strong family history of coronary disease with his father having a heart attack at age 48 and dying in his 50s and 2 aunts dying in their 40s of heart attack. In the emergency room he was noted to be in sinus rhythm with no acute changes and blood work was noted to be normal except for his troponin which went up from 87-14 102 now 11,000. Cardiology was called for further evaluation and management. He has minimal chest discomfort at this time. Vitals in ED notable for hypertension, otherwise unremarkable. Labs before WBC count 14, hemoglobin 14.6, platelets 301, sodium 133, potassium 4.2, BUN 14, creatinine 0.99, glucose 215, troponin 87 to 1414. Chest x-ray was nonacute. EKG showed frequent PVCs, otherwise sinus rhythm, no notable ST changes. PFSH Medical History Anxiety Arthritis Bulging disc Chest pain Diabetes Hypertension Myocardial infarct Neuropathy Osteoporosis Smoker Medical History no medical history no medical history Home Medications duloxetine 30 mg capsule,delayed release 60 mg PO DAILY pain 11/19/22 [History Last Taken 12/01/22] glipizide 5 mg tablet 10 mg PO DAILY diabetes 11/19/22 [History Last Taken 12/01/22 07:28] multivitamin (Daily Multi-Vitamin tablet) 1 tab PO DAILY supplement 12/01/22 [History Last Taken 12/01/22 07:30] pregabalin 50 mg capsule 50 mg PO BID 12/01/22 [History Last Taken Unknown] Allergy/AdvReac Type Severity Reaction Status Date / Time No Known Allergies Allergy Verified 11/19/22 13:43 Family History (Updated 11/19/22 @ 13:52 by Vicky Hastings) Father Diabetes Family History no significant family his no significant family history (Father with significant history of premature coronary artery disease: And aunts also have significant coronary artery disease) Surgical History no surgical history no surgical history Social History household members: none current occupational status: employed Smoking Status: Current every day smoker tobacco type: cigarettes ROS Constitutional Constitutional: Denies fever(s) or weight loss Eyes Eyes: Reports systems reviewed and no addt'l complaints, except as documented ENT HEENT: Reports systems reviewed and no addt'l complaints, except as documented Cardiovascular Cardiovascular: Reports chest pain at rest and chest pain with activity; Denies dyspnea at rest, dyspnea on exertion, edema, palpitations or paroxysmal nocturnal dyspnea Respiratory/Chest Respiratory/Chest: Denies dyspnea on exertion, productive cough, shortness of breath at rest or shortness of breath with exertion Gastrointestinal Gastrointestinal: Denies change in bowel habits, nausea, vomiting or weight changes Genitourinary Genitourinary: Denies difficulty urinating Musculoskeletal Musculoskeletal: Denies joint stiffness or muscle weakness Integumentary Integumentary: Denies lesions Neurologic Neurologic: Denies dizziness or syncope Psychiatric Psychiatric: Denies anxiety Endocrine Endocrinology: Denies excessive sweating or fatigue Hematologic/Lymphatic Hematologic/Lymphatic: Denies anemia Allergic/Immunologic Allergic/Immunologic: Denies seasonal rhinorrhea Physical Exam Const alert, oriented x3 and no apparent distress General Appearance: cooperative HEENT hearing grossly normal bilaterally Head and Scalp: atraumatic Eyes EOMs intact bilaterally Neck General: normal visual inspection Chest inspection of chest normal and palpation of chest normal Resp normal respiratory effort Auscultation: clear to auscultation bilaterally Cardio regular rate, regular rhythm, S1 normal heart sound and S2 normal heart sound Jugular Venous Distention: JVD GI normal to inspection, nondistended, normoactive bowel sounds Extremity normal capillary refill and no pedal edema Peripheral Pulses: Yes pulses 2+ throughout and femoral pulses present Skin no rashes or lesions noted Neuro oriented x3 and CN's II-XII intact bilaterally Psych Appearance: grossly normal and appropriate Risk Stratification Risk Stratification Applicable: Yes Age >/= 65: No >/= 3 CAD Risk Factors (HTN, HLD, DM, family hx of CAD, or current smoker): Yes Aspirin Use in the Past 7 Days: No Severe Angina (>/= episodes in 24 hours): Yes EKG ST Changes >/= 0.5mm: No Positive Cardiac Marker: Yes KASSIE Risk Stratification Score: 3 KASSIE % Risk: 13% Risk Objective Data Vital Signs: Vital Signs Temp Pulse Resp BP Pulse Ox O2 Del Method O2 Flow Rate 96.8 F L 55 L 16 155/76 H 96 Nasal Cannula 2 12/02/22 06:25 12/02/22 06:25 12/02/22 06:25 12/02/22 06:25 12/02/22 06:25 12/02/22 06:25 12/02/22 06:25 Oxygen Flow Rate (L/min) 2 Oxygen Delivery Method Nasal Cannula Weight: 210 lb 1.608 oz Body Mass Index (BMI) 25.5 Intake & Output: Intake and Output for Last 24 Hours 11/30/22 12/01/22 12/02/22 23:59 23:59 23:59 Intake Total 240 / 240 68.17 / 68.17 Balance 240 / 240 68.17 / 68.17 Lab / Micro Data 12/02/22 05:10 12/02/22 05:10 Labs: Laboratory Results - last 24 hr 12/01/22 14:45: WBC 14.0 H, RBC 4.87, Hgb 14.6, Hct 43.5, MCV 89.3, MCH 30.0, MCHC 33.6, RDW Std Deviation 43.8, RDW Coeff of Shannon 13.4, Plt Count 301, MPV 10.1, Immature Gran % (Auto) 0.600, Neut % (Auto) 83.3 H, Lymph % (Auto) 11.9 L, [place] % (Auto) 3.7, Eos % (Auto) 0.1, Baso % (Auto) 0.4, Absolute Neuts (auto) 11.6 H, Absolute Lymphs (auto) 1.66, Nucleated RBC % 0, Sodium 133 L, Potassium 4.2, Chloride 100, Carbon Dioxide 25.0, Anion Gap 8, BUN 14, Creatinine 0.99, Est GFR (MDRD) Af Amer 101, Est GFR (MDRD) Non-Af 83, BUN/Creatinine Ratio 14.1, Glucose 215 H, Hemoglobin A1c 6.3 H, Calcium 9.4, Troponin I High Sens 87 H, Lipase 56 12/01/22 16:50: Troponin I High Sens 1414 H*, TSH 1.12 12/01/22 18:20: PT 12.7, INR 1.0, APTT 26.7 12/01/22 18:57: Triglycerides 252 H, Cholesterol 241 H, LDL Cholesterol 142 H, VLDL Cholesterol 50 H, HDL Cholesterol 49 12/01/22 20:33: Troponin I High Sens 4325 H* 12/01/22 21:26: POC Glucose 154 H 12/01/22 23:05: Troponin I High Sens 7138 H* 12/02/22 00:40: APTT 37.0 H 12/02/22 03:12: POC Glucose 197 H 12/02/22 05:10: WBC 14.5 H, RBC 4.89, Hgb 14.2, Hct 43.4, MCV 88.8, MCH 29.0, MCHC 32.7, RDW Std Deviation 43.8, RDW Coeff of Shannon 13.4, Plt Count 312, MPV 10.5, Immature Gran % (Auto) 0.600, Neut % (Auto) 82.4 H, Lymph % (Auto) 12.1 L, [place] % (Auto) 4.5, Eos % (Auto) 0.1, Baso % (Auto) 0.3, Absolute Neuts (auto) 11.9 H, Absolute Lymphs (auto) 1.76, Nucleated RBC % 0, Sodium 132 L, Potassium 4.0, Chloride 100, Carbon Dioxide 26.0, Anion Gap 6, BUN 11, Creatinine 0.80, Estim Creat Clear Calc 128.09, Est GFR (MDRD) Af Amer 129, Est GFR (MDRD) Non-Af 107, BUN/Creatinine Ratio 13.8, Glucose 216 H, Calcium 9.0, Magnesium 2.5, Troponin I High Sens 86264 H* 12/02/22 06:30: POC Glucose 210 H Cardiology Labs/Tests 12/01/22 14:45: WBC 14.0 H, RBC 4.87, Hgb 14.6, Hct 43.5, MCV 89.3, MCH 30.0, MCHC 33.6, Plt Count 301, MPV 10.1, Immature Gran % (Auto) 0.600, Neut % (Auto) 83.3 H, Lymph % (Auto) 11.9 L, [place] % (Auto) 3.7, Eos % (Auto) 0.1, Baso % (Auto) 0.4, Absolute Neuts (auto) 11.6 H, Nucleated RBC % 0, Sodium 133 L, Potassium 4.2, Chloride 100, Carbon Dioxide 25.0, Anion Gap 8, BUN 14, Creatinine 0.99, Est GFR (MDRD) Af Amer 101, Est GFR (MDRD) Non-Af 83, BUN/Creatinine Ratio 14.1, Glucose 215 H, Hemoglobin A1c 6.3 H, Calcium 9.4 12/01/22 18:20: PT 12.7, INR 1.0, APTT 26.7 12/01/22 18:57: Triglycerides 252 H, Cholesterol 241 H, LDL Cholesterol 142 H, VLDL Cholesterol 50 H, HDL Cholesterol 49 12/02/22 00:40: APTT 37.0 H 12/02/22 05:10: WBC 14.5 H, RBC 4.89, Hgb 14.2, Hct 43.4, MCV 88.8, MCH 29.0, MCHC 32.7, Plt Count 312, MPV 10.5, Immature Gran % (Auto) 0.600, Neut % (Auto) 82.4 H, Lymph % (Auto) 12.1 L, [place] % (Auto) 4.5, Eos % (Auto) 0.1, Baso % (Auto) 0.3, Absolute Neuts (auto) 11.9 H, Nucleated RBC % 0, Sodium 132 L, Potassium 4.0, Chloride 100, Carbon Dioxide 26.0, Anion Gap 6, BUN 11, Creatinine 0.80, Est GFR (MDRD) Af Amer 129, Est GFR (MDRD) Non-Af 107, BUN/Creatinine Ratio 13.8, Glucose 216 H, Calcium 9.0, Magnesium 2.5 Rhythm: EKG: ECHO: Stress Test: Cardiac Cath: PCI: CT Surgery: Holter monitor: EPS: PPM: CXR: Chest CT Scan: Radiography Diagnostic Testing: Radiology Impression Chest X-Ray 12/01/22 14:53 IMPRESSION: Normal x-ray examination of the chest. Electronically Signed: Guru Pinedo MD at 15:08 EDT ,
[2022-12-02 08:35] LABS: Partial Thromboplast Time 37.7 Seconds (24.1-36.2)
--- NOTE | 2022-12-02 09:15 | CASEMGMT ---
JANAK CM: Tertiary Facilities in network with pt's [employer] plan per [employer] website: [facility], [facility], [facility], [facility], , [facility], [facility], [employer], JANAK BORDEN
--- NOTE | 2022-12-02 11:00 | EKG12_ITS ---
Test Reason : POST PCI Blood Pressure : / mmHG Vent. Rate : 056 BPM Atrial Rate : 056 BPM P-R Int : 142 ms QRS Dur : 092 ms QT Int : 422 ms P-R-T Axes : 039 047 058 degrees QTc Int : 407 ms Sinus bradycardia Septal infarct , age undetermined Abnormal ECG When compared with ECG of 02-DEC-2022 05:21, MANUAL COMPARISON REQUIRED, DATA IS UNCONFIRMED Confirmed by REHANA THEODORE, DAJA ([id number]), purchasing expeditor RADHA LUDWIG ([id number]) on 12/18/2022 11:20:51 AM Referred By: CINDI Confirmed By:DAJA KIMBALL MD
[2022-12-02] MEDS: Glucerna Shake 120 ML LIQUID PO ×2 (11:27→16:28)
[2022-12-02] MEDS: 0.9% Normal Saline (1000mL) 1,000 ML 70 ML IV (11:30)
[2022-12-02] MEDS: Pregabalin 50 MG Capsule PO ×2 (11:37→22:18)
[2022-12-02] MEDS: Carvedilol 6.25 MG Tablet PO ×2 (11:37→22:20)
[2022-12-02] MEDS: Lisinopril 10 MG Tablet PO (11:37)
[2022-12-02] MEDS: DULoxetine Hcl 30 MG Capsule PO (11:38)
[2022-12-02 12:21] LABS: Bedside Glucose 155 mg/dL (74-106)
--- NOTE | 2022-12-02 12:47 | CL.D_ITS ---
Patient Name: AIDE CALL Study Date: 12/02/2022 Performing: Romeo Rush MD Ht: 76 inches 193.04 cm : 1965 Wt: 210.1 lbs 95.3 kg Age: 57 Gender: male BSA: 2.26 PROCEDURE(S) PERFORMED IC12-(94972/[id number])NAWAF W/WO PTCA, SINGLE CORONARY ARTERY [id number])LHC/COR/LV CLINICAL PROFILE AND INDICATIONS Indications: Suspected CAD Heart Failure: None Stress/Imaging Stress/Image Study Performed: No CAD Presentations: Non-STEMI. Symptom onset Date/Time: 12/02/22 Time Not Available CONCLUSIONS Severe disease involving the first diagonal and to the mid circumflex artery and a totally occluded right coronary artery with mild disease noted in the left anterior descending artery. Ynxa-jf-[id number] collaterals are seen with the basal inferior akinetic zone. RECOMMENDATIONS We will consider PCI to the mid circumflex artery. DESCRIPTION OF PROCEDURE The patient arrived to the procedure lab. The risks and benefits of the procedure as well as a full description of our services here and current unavailability of surgical backup were fully explained to the patient and/or their significant other prior to the catheterization. The Timeout was completed, verifying the correct patient and procedure. The patient's procedural site was prepped and draped in the usual fashion. Local anesthetic was given subcutaneously to right radial region with Lidocaine 2%. Using a modified Seldinger technique, arterial access was obtained via the right radial artery, a 6Fr sheath was inserted. Left Coronary Artery selective angiography was performed in multiple views using a 5 Fr. 4.0 Gilbert catheter. Right Coronary Artery selective angiography was then performed in multiple views using a 5 Fr. 4.0 Gilbert catheter. Left Ventriculography was performed in CLEMENS projection using a 5 Fr. Pigtail catheter. LV to AO pullback pressures were then recorded. CORONARY ANGIOGRAPHY DOMINANCE: Left Dominant LEFT HEART ASSESSMENT Left Ventricular Ejection Fraction: by LV Gram 55 % Inferior Basal Akinesis Normal Left Ventricular systolic function LEFT MAIN: Angiographically normal LEFT ANTERIOR DESCENDING ARTERY: Diffusely diseased vessel with no evidence of high-grade stenosis but a first diagonal vessel with a long 80% stenotic lesion CIRCUMFLEX ARTERY: Dominant vessel with first obtuse marginal branch with mild disease in the mid circumflex artery with a high-grade 95% stenosis at the takeoff of the second obtuse marginal branch and the continuation of the AV groove branch. Psfk-zl-ukbnz collaterals are seen. RIGHT CORONARY ARTERY: PROX RCA: Subtotally occluded with normal collaterals COMPLICATIONS PROCEDURE MEDICATIONS Fentanyl 50 mcg IV Versed 1 mg IV Versed 1 mg IV Oxygen: 2 L/min via nasal cannula Aspirin (325mg) 1 Tabs PO @ 12/02/2022 08:55:49 Heparin given IA 12/02/2022 09:01:20 Verapamil 2.5mg, Ntg 100mcgs, 3000 units of Heparin given IA 12/02/2022 09:01:20 SUMMARY OF HEMODYNAMIC DATA Time AIR REST AO 145/72 (98) SA 09:01:51 LV 128/3, 13 09:07:49 LV 126/5, 12 09:07:55 LV 122/7, 12 09:08:38 LV 126/11, 25 09:08:39 LVp 142/11, 22 09:08:47 AOp 147/72 (100) 09:08:52 AO 175/23 (39) 09:52:40 10:57:56 Signed By Romeo Rush MD On 12/02/2022 12:46:19 Romeo Rush MD
--- NOTE | 2022-12-02 14:56 | CASEMGMT ---
JANAK BORDEN Discharge Planning Assessment: Face to Face with patient for initial transition planning/care coordination assessment.?JANAK BORDEN introduced self and role at [facility], pt alert, answering questions appropriately, voiced understanding and agreeable to participating in assessment.? Care providers, pharmacy,?and demographics verified. ? Admitting Dx: NSTEMI PCP: Rossana Hernandez NP at [facility] Specialists: none Preferred Pharmacy: [facility] Insurance: [facility] [place] Prescription Benefit:?yes Living Will/HPOA: none LNOK: mother Temi Living Arrangements: Pt lives alone in a two story apartment. Pt denies any difficulty with the stairs and states he is independent with all ADLs including self care and household tasks. Transportation: Pt drives and denies any concerns with transportation DME: Pt states he has a glucometer but does not have the supplies. Pt states he will talk to his PCP about obtaining the needed supplies. Pt states he has not been checking his glucose but states he will be taking better care of himself and plans to start doing so. HHC/SNF: pt denies any previous providers Substance use: Pt states he is an alcoholic and has been sober x5 years. States he attends AA meetings regularly. Pt states he did smoke cigarettes but states he plans to not resume smoking upon discharge. SDoH: Pt states he was homeless for 10 months and moved into his apartment 2 months ago. 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 States he has concerns re: money so that he can purchase healthier food but states he will be able to seek assistance from his mother or his employer. Pt states he does help [employer] [address] with their free breakfasts that are served to the homeless. Pt's goal/plan: Pt plans to return home with the support of his mother. Pt denies any discharge needs at this time. Ana Champagne RN CM
--- NOTE | 2022-12-02 15:13 | PN_ITS ---
Subjective Subjective Patient seen and examined. He had no active complains. He came in with chest pain and was found to have nonstemi. He had cardiac cath today. Objective Data Objective Data Vital Signs: Vital Signs Temp Pulse Resp BP Pulse Ox O2 Del Method O2 Flow Rate 98 F 62 14 131/71 H 98 Room Air 2 12/02/22 12:46 12/02/22 12:46 12/02/22 12:46 12/02/22 12:46 12/02/22 12:46 12/02/22 12:46 12/02/22 07:39 Oxygen Flow Rate (L/min) 2 Oxygen Delivery Method Room Air Weight: 210 lb 1.608 oz Body Mass Index (BMI) 25.5 Intake & Output: Intake and Output for Last 24 Hours 11/30/22 12/01/22 12/02/22 23:59 23:59 23:59 Intake Total 240 / 240 269.37 / 269.37 Balance 240 / 240 269.37 / 269.37 Lab / Micro Data 12/02/22 05:10 12/02/22 05:10 Labs: Laboratory Results - last 24 hr 12/01/22 14:45: Hemoglobin A1c 6.3 H, Lipase 56 12/01/22 16:50: Troponin I High Sens 1414 H*, TSH 1.12 12/01/22 18:20: PT 12.7, INR 1.0, APTT 26.7 12/01/22 18:57: Triglycerides 252 H, Cholesterol 241 H, LDL Cholesterol 142 H, VLDL Cholesterol 50 H, HDL Cholesterol 49 12/01/22 20:33: Troponin I High Sens 4325 H* 12/01/22 21:26: POC Glucose 154 H 12/01/22 23:05: Troponin I High Sens 7138 H* 12/02/22 00:40: APTT 37.0 H 12/02/22 03:12: POC Glucose 197 H 12/02/22 05:10: WBC 14.5 H, RBC 4.89, Hgb 14.2, Hct 43.4, MCV 88.8, MCH 29.0, MCHC 32.7, RDW Std Deviation 43.8, RDW Coeff of Shannon 13.4, Plt Count 312, MPV 10.5, Immature Gran % (Auto) 0.600, Neut % (Auto) 82.4 H, Lymph % (Auto) 12.1 L, [place] % (Auto) 4.5, Eos % (Auto) 0.1, Baso % (Auto) 0.3, Absolute Neuts (auto) 11.9 H, Absolute Lymphs (auto) 1.76, Nucleated RBC % 0, Sodium 132 L, Potassium 4.0, Chloride 100, Carbon Dioxide 26.0, Anion Gap 6, BUN 11, Creatinine 0.80, Estim Creat Clear Calc 128.09, Est GFR (MDRD) Af Amer 129, Est GFR (MDRD) Non-Af 107, BUN/Creatinine Ratio 13.8, Glucose 216 H, Calcium 9.0, Magnesium 2.5, Troponin I High Sens 23978 H* 12/02/22 06:30: POC Glucose 210 H 12/02/22 07:55: APTT 37.7 H 12/02/22 12:00: POC Glucose 155 H Radiography Diagnostic Testing: Radiology Impression Echocardiogram 12/01/22 18:57 Interpretation Summary The left ventricular ejection fraction is 45 %. Normal LV size. Infero-Basal: Akinetic. Mild (1+) mitral valve insufficiency. Mild focal mitral valve calcification of the anterior leaflet. Ordering Physician: Orlando Kirkland Referring Physician: Daniela Hernandez Performed By: Tierney Pat, FEDE, RVT Physical Exam Const alert, oriented x3 and no apparent distress General Appearance: cooperative and well developed HEENT normocephalic, head/scalp atraumatic, moist oral mucous membranes and oropharynx normal Eyes PERRL and EOMs intact bilaterally Neck no lymphadenopathy, supple and no JVD Lymph Lymphatic: no lymphadenopathy noted and no lymphedema noted Resp normal respiratory effort, normal air movement and clear to auscultation bilaterally Cardio regular rate, regular rhythm, S1 normal heart sound, S2 normal heart sound and no murmurs GI normal to inspection, nondistended, normoactive bowel sounds, soft to palpation, non-tender and non-distended Extremity normal capillary refill, no clubbing, cyanosis or edema and no calf tenderness Skin General Skin Exam: no breakdown Neuro CN's II-XII intact bilaterally, no focal motor deficits, no sensory deficits noted and deep tendon reflexes 2+ bilaterally Motor Exam: strength 5/5 throughout Psych thought process normal and cooperative Appearance: appropriate Assessment & Plan Assessment/Plan (1) NSTEMI, initial episode of care: PLAN: Plan #Nonstemi * was admitted with chest pain. Troponins trended up to 11,000. EKG showed no acute ST changes. * Was placed on heparin drip and aspirin as well as high intensity statin. * Had cardiac cath which showed severe disease involving the first diagonal and mid circumflex artery and a total occluded RCA with mild disease noted in the left anterior descending artery with [id number] collaterals seen within the basal inferior akinetic zone. He had PCI to the mid circumflex artery * On aspirin, Brilinta and Coreg. Cardiology on board. 2D echo ordered. * #Type 2 diabetes mellitus with peripheral neuropathy: On glipizide 5 mg daily. A1c 6.3. Insulin sliding scale. Accu-Cheks ACHS. On gabapentin. #History of smoking: Smokes 1 to 1.5 packs daily. Counseled to quit. DVT prophylaxis: SCDs Charges/Coding Visit Charges Inpatient E&M: 90498 Subs Hosp L3
[2022-12-02 16:40] LABS: Bedside Glucose 163 mg/dL (74-106)
[2022-12-02] MEDS: TICAGRELOR 90 MG TABLET PO (22:19)
[2022-12-02] MEDS: Atorvastatin Calcium 80 MG Tablet PO (22:20)
[2022-12-02 23:24] LABS: Bedside Glucose 126 mg/dL (74-106)
[2022-12-03 04:00] VITALS: BP 105/68; PULSE 79; RESP 16; TEMP 36.8; O2SAT 100
--- NOTE | 2022-12-03 04:17 | EKG12_ITS ---
Test Reason : AM Blood Pressure : / mmHG Vent. Rate : 067 BPM Atrial Rate : 067 BPM P-R Int : 138 ms QRS Dur : 094 ms QT Int : 422 ms P-R-T Axes : -06 060 072 degrees QTc Int : 445 ms Normal sinus rhythm Septal infarct , age undetermined Abnormal ECG When compared with ECG of 02-DEC-2022 11:13, MANUAL COMPARISON REQUIRED, DATA IS UNCONFIRMED Confirmed by REHANA THEODORE, DAJA ([id number]), photography editor RADHA LUDWIG ([id number]) on 12/18/2022 11:21:03 AM Referred By: CINDI Confirmed By:DAJA KIMBALL MD
[2022-12-03 06:22] LABS: Hematocrit 38.2 % (40-54); Hemoglobin 13.4 g/dL (13.0-16.5); Mean Corp Hgb Conc 35.1 g/dL (32-36); Mean Corpuscular Hgb 31.5 pg (27.0-32.0); Mean Corpuscular Volume 89.9 fL (80-94); Mean Platelet Vol. 10.4 fl (6.2-12.0); Platelet Count 247 K/mm3 (150-450); RBC Distribution Width CV 13.4 % (11.6-14.6); RBC Distribution Width SD 44.4 fl (35.1-43.9); Red Blood Count 4.25 M/mm3 (4.6-6.2); White Blood Count 8.1 K/mm3 (4.4-11.0)
[2022-12-03 07:09] LABS: AST(SGOT) 61 U/L (15-37); Alanine Aminotransfer ALT/SGPT 35 U/L (16-61); Albumin, Serum 3.2 g/dL (3.2-5.0); Alkaline Phosphatase 63 U/L (45-117); Anion Gap 6 (5-15); BUN 13 mg/dL (7-18); Calcium,Total 8.5 mg/dL (8.5-10.1); Chloride 104 mmol/L (98-107); Creatinine, Serum 0.86 mg/dL (0.70-1.30); EST Glomerular Filtration Rate 97 mL/min (>60); Est Glom Filt Rate - Afr Amer 118 mL/min (>60); Estimated Creatinine Clearance 119.15 ml/min; Globulin 3.2 g/dL (2.2-4.2); Glucose 157 mg/dL (74-106); Potassium 4.1 mmol/L (3.5-5.1); Protein, Total 6.4 g/dL (6.4-8.2); Sodium Level 134 mmol/L (136-145)
[2022-12-03 07:21] LABS: Bedside Glucose 166 mg/dL (74-106)
--- NOTE | 2022-12-03 07:25 | NURSING ---
.PT REFUSED INSULIN AND WANTS TO GO HOME.
--- NOTE | 2022-12-03 07:50 | PCM.PN.CARD ---
Subjective Subjective Patient seen and evaluated. Appears to be doing well this morning. No complaints. Objective Data Vital Signs: Vital Signs Temp Pulse Resp BP Pulse Ox O2 Del Method O2 Flow Rate 98.3 F 79 16 105/68 100 Room Air 2 12/03/22 04:00 12/03/22 04:00 12/03/22 04:00 12/03/22 04:00 12/03/22 04:00 12/03/22 04:00 12/02/22 07:39 Oxygen Flow Rate (L/min) 2 Oxygen Delivery Method Room Air Weight: 210 lb 1.608 oz Body Mass Index (BMI) 25.5 Intake & Output: Intake and Output for Last 24 Hours 12/01/22 12/02/22 12/03/22 23:59 23:59 23:59 Intake Total 240 / 240 629.37 / 629.37 1000 / 1000 Balance 240 / 240 629.37 / 629.37 1000 / 1000 Lab / Micro Data 12/03/22 05:49 12/03/22 05:49 Labs: Laboratory Results - last 24 hr 12/02/22 07:55: APTT 37.7 H 12/02/22 12:00: POC Glucose 155 H 12/02/22 16:21: POC Glucose 163 H 12/02/22 23:00: POC Glucose 126 H 12/03/22 05:49: WBC 8.1, RBC 4.25 L, Hgb 13.4, Hct 38.2 L, MCV 89.9, MCH 31.5, MCHC 35.1 D, RDW Std Deviation 44.4 H, RDW Coeff of Shannon 13.4, Plt Count 247, MPV 10.4, Sodium 134 L, Potassium 4.1, Chloride 104, Carbon Dioxide 24.0, Anion Gap 6, BUN 13, Creatinine 0.86, Estim Creat Clear Calc 119.15, Est GFR (MDRD) Af Amer 118, Est GFR (MDRD) Non-Af 97, BUN/Creatinine Ratio 15.0, Glucose 157 H, Calcium 8.5, Total Bilirubin 0.50, AST 61 H, ALT 35, Alkaline Phosphatase 63, Total Protein 6.4, Albumin 3.2, Globulin 3.2, Albumin/Globulin Ratio 1.0 12/03/22 07:02: POC Glucose 166 H Cardiology Labs/Tests 12/02/22 07:55: APTT 37.7 H 12/03/22 05:49: WBC 8.1, RBC 4.25 L, Hgb 13.4, Hct 38.2 L, MCV 89.9, MCH 31.5, MCHC 35.1 D, Plt Count 247, MPV 10.4, Sodium 134 L, Potassium 4.1, Chloride 104, Carbon Dioxide 24.0, Anion Gap 6, BUN 13, Creatinine 0.86, Est GFR (MDRD) Af Amer 118, Est GFR (MDRD) Non-Af 97, BUN/Creatinine Ratio 15.0, Glucose 157 H, Calcium 8.5, Total Bilirubin 0.50 Rhythm: EKG: ECHO: Stress Test: Cardiac Cath: PCI: CT Surgery: Holter monitor: EPS: PPM: CXR: Chest CT Scan: Radiography Diagnostic Testing: Radiology Impression Echocardiogram 12/01/22 18:57 Interpretation Summary The left ventricular ejection fraction is 45 %. Normal LV size. Infero-Basal: Akinetic. Mild (1+) mitral valve insufficiency. Mild focal mitral valve calcification of the anterior leaflet. Ordering Physician: Orlando Kirkland Referring Physician: Daniela Hernandez Performed By: Tierney Pat, FEDE, RVT Physical Exam Const alert, oriented x3 and no apparent distress General Appearance: cooperative HEENT hearing grossly normal bilaterally Head and Scalp: atraumatic Eyes EOMs intact bilaterally Neck General: normal visual inspection Chest inspection of chest normal and palpation of chest normal Resp normal respiratory effort Auscultation: clear to auscultation bilaterally Cardio regular rate, regular rhythm, S1 normal heart sound and S2 normal heart sound Jugular Venous Distention: JVD GI normal to inspection, nondistended, normoactive bowel sounds Extremity normal capillary refill and no pedal edema Peripheral Pulses: Yes pulses 2+ throughout and femoral pulses present Skin no rashes or lesions noted Neuro oriented x3 and CN's II-XII intact bilaterally Psych Appearance: grossly normal and appropriate Assessment & Plan Assessment/Plan (1) NSTEMI, initial episode of care: PLAN: He does present with a history of a non-ST elevation myocardial infarction with clinical findings suggestive thereof. He did demonstrate high-grade diagonal disease and high-grade mid circumflex disease for which she underwent PCI. His right coronary artery was chronically occluded. Recommendations will be as follows Continue aspirin Continue beta-samara Continue high intensity statin Continue ticagrelor for 1 month and then switch over to clopidogrel for a year. The patient can be discharged for outpatient follow-up. (2) Hypertension: PLAN: His blood pressure is uncontrolled and my recommendation will be to continue with a beta-samara Add MEGA inhibitor Thank you for allowing me to participate in the care of your patient. Please don't hesitate to call if any issues arise.
[2022-12-03 08:52] VITALS: BP 120/67; PULSE 67; RESP 14; TEMP 36.6
--- NOTE | 2022-12-03 08:52 | DCINST_ITS ---
Discharge Instructions Diet Discharge Diet: Low fat / Low cholesterol and 1800 Calorie Control Diet Activity Discharge Activity: Return to Normal Activity Weight Bearing Status: Weight bearing as tolerated Dressing / Incision Call your doctor if you observe: Fever of 101 or Higher, Shortness of breath, Dizziness, Swelling in the ankles and Chest pain Follow Up Care Test Results: Test results from this visit will be discussed in further detail at your follow- up appointment, if applicable. Discharge Plan Admission Admit Date/Time: 12/01/22 18:24 Primary Reason for Your Visit: NONSTEMI Attending Provider: Monica Arceo Primary Care Provider: Daniela Hernandez NP Consulting Providers: Orlando Kirkland; Romeo Rush Instructions Patient Instructions: Heart Attack Dc, Exercising After a Heart Attack, Heart Attack Meds Discharge Orders/Prescriptions Prescriptions: New atorvastatin 80 mg Tablet 80 mg PO QHS Qty: 30 2RF carvedilol 6.25 mg Tablet 6.25 mg PO BID Qty: 60 2RF aspirin 81 mg Tablet,Delayed Release (Dr/Ec) 81 mg PO DAILY@0800 Qty: 30 2RF lisinopril 10 mg Tablet 10 mg PO DAILY Qty: 30 2RF Brilinta 90 mg Tablet 90 mg PO BID Qty: 60 2RF Continued pregabalin 50 mg capsule 50 mg PO BID Patient Comments: Take 1 capsule by mouth twice daily for 90 days. multivitamin [Daily Multi-Vitamin] Tablet 1 tab PO DAILY glipizide 5 mg tablet 10 mg PO DAILY Patient Comments: Take 1 tablet by mouth once daily. duloxetine 30 mg capsule,delayed release(DR/EC) 60 mg PO DAILY Patient Comments: Take 1 capsule by mouth once daily. Referrals / Follow Up: Romeo Rush MD [Med Staff - Active Staff] - Within 2 Weeks Daniela Hernandez NP, [facility] [Primary Care Provider] - Within 1 Week Disposition Disposition (needs filled in before D/C Order can be placed): Home, Self Care
--- NOTE | 2022-12-03 08:53 | DS.PCM_ITS ---
Providers Date of Admission: 12/01/22 Date of Discharge: 12/03/22 Primary Care Physician: LIO Pardo Consultations 12/01/22 18:57 Consult: Cardiology Routine Consulting Provider: Romeo Rush Reason for Consult: NSTEMI type I EMERGENT Consult: No MD Notified: Yes Date Notified: 12/02/22 Time Notified: 07:00 Method of Notification: Text Reason For Visit: NSTEMI Diagnosis Discharge Diagnosis (1) NSTEMI, initial episode of care: Status: Acute Code(s): I21.4 - Non-ST elevation (NSTEMI) myocardial infarction (2) Hypertension: Status: Chronic Code(s): I10 - Essential (primary) hypertension Plan #Nonstemi * was admitted with chest pain. Troponins trended up to 11,000. EKG showed no acute ST changes. * Was placed on heparin drip and aspirin as well as high intensity statin. * Had cardiac cath which showed severe disease involving the first diagonal and mid circumflex artery and a total occluded RCA with mild disease noted in the left anterior descending artery with [id number] collaterals seen within the basal inferior akinetic zone. He had PCI to the mid circumflex artery * On aspirin, Brilinta and Coreg. Cardiology on board. 2D echo ordered. * #Type 2 diabetes mellitus with peripheral neuropathy: On glipizide 5 mg daily. A1c 6.3. Insulin sliding scale. Accu-Cheks ACHS. On gabapentin. #History of smoking: Smokes 1 to 1.5 packs daily. Counseled to quit. DVT prophylaxis: SCDs Medications at Discharge Home Medications duloxetine 30 mg capsule,delayed release 60 mg PO DAILY pain 11/19/22 glipizide 5 mg tablet 10 mg PO DAILY diabetes 11/19/22 multivitamin (Daily Multi-Vitamin tablet) 1 tab PO DAILY supplement 12/01/22 pregabalin 50 mg capsule 50 mg PO BID 12/01/22 aspirin 81 mg tablet,delayed release 81 mg PO DAILY@0800 #30 tabs 12/03/22 atorvastatin 80 mg tablet 80 mg PO QHS #30 tabs 12/03/22 carvedilol 6.25 mg tablet 6.25 mg PO BID #60 tabs 12/03/22 lisinopril 10 mg tablet 10 mg PO DAILY #30 tabs 12/03/22 ticagrelor 90 mg tablet (Brilinta) 90 mg PO BID #60 tabs 12/03/22 Hospital Course Operations None Procedures 2-D Echocardiogram and Cardiac catheterization Summary of Care Provided Minutes Spent on Discharge: 55 Hospital Course: Patient is a 57-year-old male with a past medical history as outlined was admitted through the ED on 12/01/2022 with a complaint of chest pain which have been going on for several days prior to admission and worsened on the day of admission. He has a history of smoking and smokes about 1 to 1.5 packs of cigarettes a day and also a type 2 diabetes mellitus. He had a strong family history of heart disease. On admission troponin was initially 87 and trended up to 2414. Chest x-ray showed no acute cardiopulmonary process and EKG showed no acute ST changes. Troponins trended up further to a peak of 11,000. He was placed on heparin drip and high intensity statin. He was admitted and managed for non-STEMI. He had cardiac cath which showed severe disease involving the first diagonal and mid circumflex artery and a total occluded RCA with mild dis ease noted in the left anterior descending artery with [id number] collaterals seen within the basal inferior akinetic zone. He had PCI to the mid circumflex artery. He was placed on aspirin, Brilinta and Coreg as well as lisinopril. He had 2D echo which showed EF of 45% with normal left ventricular size and akinesia of the inferior basal wall. He was also placed on high intensity statin. Patient felt well after his cardiac cath. He was discharged home on 12/03/2022. He is to follow-up with his primary care doctor and follow-up with cardiology within 1 week. Patient seen and examined prior to discharge. He had no complaints and had an uneventful night. Review of systems otherwise negative. Labs and vitals reviewed. Medication reviewed and reconciled. Physical Exam Const alert, oriented x3, no apparent distress, average body habitus, healthy appearing and well nourished General Appearance: cooperative, comfortable, well kempt and well developed Orientation / Consciousness: awake HEENT normocephalic, head/scalp atraumatic, hearing grossly normal bilaterally, nasal mucous membranes and turbinates normal, moist oral mucous membranes and oropharynx normal Eyes PERRL, EOMs intact bilaterally and conjunctivae normal Neck full ROM, no lymphadenopathy, supple and no JVD Lymph Lymphatic: no lymphadenopathy noted and no lymphedema noted Chest inspection of chest normal Resp normal respiratory effort, normal air movement, no retractions, no use of accessory muscles and clear to auscultation bilaterally Cardio regular rate, regular rhythm, S1 normal heart sound, S2 normal heart sound, no murmurs and peripheral pulses 2+ throughout GI normal to inspection, nondistended, normoactive bowel sounds, soft to palpation, non-tender and non-distended Back/Spine no CVA tenderness, normal ROM and normal to inspection Extremity normal to inspection, full ROM, normal capillary refill, no clubbing, cyanosis or edema, no calf tenderness and no pedal edema Skin no rashes or lesions noted General Skin Exam: no breakdown Neuro oriented x3, CN's II-XII intact bilaterally, moves all extremities, no focal motor deficits, no sensory deficits noted and deep tendon reflexes 2+ bilaterally Motor Exam: strength 5/5 throughout Psych mental status grossly normal, thought process normal and cooperative Appearance: appropriate Weight / BMI Weight Weight: 210 lb 1.608 oz Body Mass Index (BMI) 25.5 ABG / Lab / Microbiology Data 12/03/22 05:49 12/03/22 05:49 Laboratory: Laboratory Results - last 24 hr 12/02/22 12:00: POC Glucose 155 H 12/02/22 16:21: POC Glucose 163 H 12/02/22 23:00: POC Glucose 126 H 12/03/22 05:49: WBC 8.1, RBC 4.25 L, Hgb 13.4, Hct 38.2 L, MCV 89.9, MCH 31.5, MCHC 35.1 D, RDW Std Deviation 44.4 H, RDW Coeff of Shannon 13.4, Plt Count 247, MPV 10.4, Sodium 134 L, Potassium 4.1, Chloride 104, Carbon Dioxide 24.0, Anion Gap 6, BUN 13, Creatinine 0.86, Estim Creat Clear Calc 119.15, Est GFR (MDRD) Af Amer 118, Est GFR (MDRD) Non-Af 97, BUN/Creatinine Ratio 15.0, Glucose 157 H, Calcium 8.5, Total Bilirubin 0.50, AST 61 H, ALT 35, Alkaline Phosphatase 63, Total Protein 6.4, Albumin 3.2, Globulin 3.2, Albumin/Globulin Ratio 1.0 12/03/22 07:02: POC Glucose 166 H Radiography Diagnostic Testing: Radiology Impression Echocardiogram 12/01/22 18:57 Interpretation Summary The left ventricular ejection fraction is 45 %. Normal LV size. Infero-Basal: Akinetic. Mild (1+) mitral valve insufficiency. Mild focal mitral valve calcification of the anterior leaflet. Ordering Physician: Orlando Kirkland Referring Physician: Daniela Hernandez Performed By: Tierney Pat RDCS, RVT D/C Instructions Discharge Diet: Low fat / Low cholesterol and 1800 Calorie Control Diet Weight Bearing Status: Weight bearing as tolerated Call your doctor if you observe: Fever of 101 or Higher, Shortness of breath, Dizziness, Swelling in the ankles and Chest pain Meaningful Use Info Meaningful Use Diagnoses (Choose all that apply): AMI AMI/Post PCI/Angioplasty Aspirin given w/in 24hrs of arrival?: Yes ASA at discharge?: Yes Antiplatelet Therapy at Discharge:: Yes Statins at discharge?: Yes Blair/ARB at discharge?: Yes Beta Reema at discharge?: Yes Done w/ Acute ME measure.: Yes Documented LVEF (%): 45 Discharge Plan Admission Admit Date/Time: 12/01/22 18:24 Primary Reason for Your Visit: NONSTEMI Attending Provider: Monica Arceo Primary Care Provider: Daniela Hernandez DIRECTOR SOFTWARE QUALITY ASSURANCE Consulting Providers: Orlando Kirkland; Romeo Rush Instructions Patient Instructions: Heart Attack Dc, Exercising After a Heart Attack, Heart Attack Meds Discharge Orders/Prescriptions Prescriptions: New atorvastatin 80 mg Tablet 80 mg PO QHS Qty: 30 2RF carvedilol 6.25 mg Tablet 6.25 mg PO BID Qty: 60 2RF aspirin 81 mg Tablet,Delayed Release (Dr/Ec) 81 mg PO DAILY@0800 Qty: 30 2RF lisinopril 10 mg Tablet 10 mg PO DAILY Qty: 30 2RF Brilinta 90 mg Tablet 90 mg PO BID Qty: 60 2RF Continued pregabalin 50 mg capsule 50 mg PO BID Patient Comments: Take 1 capsule by mouth twice daily for 90 days. multivitamin [Daily Multi-Vitamin] Tablet 1 tab PO DAILY glipizide 5 mg tablet 10 mg PO DAILY Patient Comments: Take 1 tablet by mouth once daily. duloxetine 30 mg capsule,delayed release(DR/EC) 60 mg PO DAILY Patient Comments: Take 1 capsule by mouth once daily. Referrals / Follow Up: Romeo Rush MD [Med Staff - Active Staff] - Within 2 Weeks Daniela Hernandez NP, DIRECTOR SOFTWARE QUALITY ASSURANCE-C [Primary Care Provider] - Within 1 Week Disposition Disposition (needs filled in before D/C Order can be placed): Home, Self Care Charges/Coding Visit Charges Inpatient E&M: 97904 Disch Hosp >30min
[2022-12-03] MEDS: Carvedilol 6.25 MG Tablet PO (09:13)
[2022-12-03] MEDS: TICAGRELOR 90 MG TABLET PO (09:13)
[2022-12-03] MEDS: Lisinopril 10 MG Tablet PO (09:13)
[2022-12-03] MEDS: DULoxetine Hcl 30 MG Capsule PO (09:14)
[2022-12-03] MEDS: Aspirin E.C. 81 MG Tablet PO (09:14)
[2022-12-03] MEDS: Glucerna Shake 120 ML LIQUID PO (09:18)
[2022-12-03] MEDS: Pregabalin 50 MG Capsule PO (09:18)
--- NOTE | 2022-12-03 09:28 | CASEMGMT ---
JANAK BORDEN NOTE: DC order is in. Call to [facility] re: meds that have been e-scribed to them, including Brilinta. Per Arias, all meds have processed through insurance without difficulty, there is no cost to patient, and they are getting them ready now. JANAK BORDEN to room. Pt resting in bed. Pt denies discharge needs or concerns. Pt made aware prescriptions have been sent to [facility] and they are processing them now. Alex KIM RN CM
--- NOTE | 2022-12-03 10:51 | CRPHASE1_ITS ---
Patient Communication Patient Information PHII Cardiac Rehab Discussed with Patient:: Yes Guide to Cardiac Rehab Given to Patient:: Yes Cardiac Rehab Facility Choice List Given to Patient:: Yes Communication to Cardiac Rehab Choice Program [facility] CR PHII:: Communication Given to CR Otr Owner Operator:: Abhishek Denny Refer Phase II Cardiac Rehab:: Yes Cardiac Rehabilitation Info Program Information Cardiac Rehabilitation Program Information: Cardiac Rehab The cardiac rehab team at [facility] consists of highly skilled exercise physiologists, nurses, respiratory therapists and physicians working together with you. Our purpose is to help you have a full recovery and achieve the goals you set for yourself. Over the years many of our patients have returned to activities they assumed they would never do again! We can help restore your confidence and motivation to make lifestyle changes that can have a significant impact on your health and quality of life! We can help answer questions and concerns you may have about exercise, lifestyle, medications, diet, stress and anxiety which are common following a hospitalization. WE monitor ECG and vital signs during exercise and discuss your progress with you and report to your physician(s). Cardiac Rehab is proven to help reduce readmissions, improve functional capacity and lower recurrence of problems with your heart. Our Cardiac Rehab program is Certified by the [place] [employer]-Vascular and Pulmonary [employer] (AACVPR) and Accredited by the [place] [employer] through our [facility]. You can contact us at . We invite you to call us with your questions or to get started in our program. If you have other questions or concerns be sure to ask your physician/provider during your follow-up visit. WE look forward to seeing you!
--- NOTE | 2022-12-03 10:52 | CRPH1.INST_ITS ---
General Education Discussed with Patient CAD and cardiac anatomy and function:: Patient communicates acknowledgment Explanation of diagnoses and procedures:: Patient communicates acknowledgment Sign/Symptoms of [place]:: Patient communicates acknowledgment Antiplatelet therapy: Patient communicates acknowledgment Proper use of NTG-SL: Patient communicates acknowledgment Emergency procedures and activation of EMS: Patient communicates acknowledgment Compliance of all prescribed medications: Patient communicates acknowledgment Smoking Risk Factors Patient Nicotine/Smoking Risk Factors Are:: Cigarettes Recommendations Recommendations Include:: Smoking cessation strategies/Smoking packet, Second- hand smoke recommendation and Participation in a smoking cessation program Response Code Nicotine/Smoking Response Code:: Patient communicates acknowledgment Dyslipidemia Risk Factors Patient Dyslipidemia Risk Factors Are:: Total Cholesterol, Triglycerides, HDL and LDL Recommendations Recommendations Include:: Lipid profile provided, Reviewed NCEP/ATP guidelines and Therapeutic Lifestyle Change dietary guidelines Response Code Dyslipidemia Response Code:: Patient communicates acknowledgment Overweight/Obesity Risk Factors Patient Overweight/Obesity Risk Factors Are:: BMI Normal [18-25 & < 65 years old] Recommendations Recommendations Include:: Weight loss of 5-10%, Reduced calorie diet and Exercise 5-7 times/week Response Code Overweight/Obesity:: Patient communicates acknowledgment Hypertension Recommendations Recommendations Include:: BP <130/80 if diabetic, DASH dietary guidelines, Decrease/maintain normal body weight and Moderation of ETOH Response Code Hypertension:: Patient communicates acknowledgment Diabetes Risk Factors Patient Diabetes Risk Factors Are:: Elevated blood sugars Recommendations Recommendations Include:: Maintain fasting blood sugars 70-110 md/dL, Maintain HgbA1c of 6% or less, Monitor blood sugar as prescribed, Diabetic dietary guidelines and Decrease/maintain body weight Response Code Diabetes:: Patient communicates acknowledgment Sedentary Risk Factors Patient Sedentary Risk Factors Are:: Lack of regular exercise Recommendations Recommendations Include:: Aerobic exercise 5-7 times/week for 20-30 minutes continuously, Benefits of regular exercise, Discussed home walking program and Monitored Outpatient Cardiac Rehab Response Code Sedentary Response Code:: Patient communicates acknowledgment Stress Recommendations Recommendations Include:: Identification of stressors, and assessment of coping skills and Stress management techniques Response Code Stress Response Code:: Patient communicates acknowledgment
--- NOTE | 2022-12-03 13:52 | CL.I_ITS ---
Patient Name: AIDE CALL Study Date: 12/02/2022 Performing: Lanie Denny MD Ht: 76 inches 193.04 cm : 1965 Wt: 210.1 lbs 95.3 kg Age: 57 Gender: male BSA: 2.26 PROCEDURE(S) PERFORMED IC12-(36518/[id number])NAWAF W/WO PTCA, SINGLE CORONARY ARTERY CLINICAL PROFILE AND CO-MORBIDITIES Indications: Suspected CAD Heart Failure: None Stress/Imaging Stress/Image Study Performed: No CAD Presentations: Non-STEMI. Symptom onset Date/Time: 12/02/22 Time Not Available CONCLUSIONS Successful NAWAF to mLCx as described RECOMMENDATIONS DESCRIPTION OF PROCEDURE The patient arrived to the procedure lab. The risks and benefits of the procedure as well as a full description of our services here and current unavailability of surgical backup were fully explained to the patient and/or their significant other prior to the catheterization. The Timeout was completed, verifying the correct patient and procedure. The patient's procedural site was prepped and draped in the usual fashion. Local anesthetic was given subcutaneously to right radial region with Lidocaine 2% Using a modified Seldinger technique,arterial access was obtained via the right radial artery, a 6Fr sheath was inserted. Left Coronary Artery selective angiography was performed in multiple views using a 5 Fr. 4.0 [place] catheter. Right Coronary Artery selective angiography was then performed in multiple views using a 5 Fr. 4.0 [place] catheter. Left Ventriculography was performed in CLEM[place] projection using a 5 Fr. Pigtail catheter. LV to AO pullback pressures were then recorded.The images were reviewed and options discussed. A decision was then made to proceed with an Intervention, IVUS or other adjunct procedure. XB3 6F Guide catheter was inserted and engaged into the LCA. BMW Guide wire was advanced to the Circumflex. 2.25X15 EUPHORA Balloon catheter was inserted. Balloon catheter was advanced across lesion in the circumflex, mid. PTCA balloon inflated at 8 atms for 5 secs. PTCA balloon inflated at 8 atms for 6 secs. PTCA balloon inflated at 8 atms for 7 secs. PTCA balloon inflated at 8 atms for 8 secs. Angiogram performed post balloon dilatation. Guide wire was advanced to the 3rd OM. Angiogram performed post balloon dilatation. 2.5X40 BonitaSoftIRO Drug Eluting stent was inserted. Drug Eluting stent was advanced across the lesion in the circumflex, mid. Angiogram performed pre stent deployment. Angiogram performed post stent deployment. Angiogram performed post stent deployment. Angiogram performed post stent deployment. The arterial sheath was pulled and a TR Band was applied for hemostasis - 10CC AIR INTERVENTION INFORMATION LESION SITE: Circumflex (Mid) Lesion Complexity: High/C, chronic total occlusion: No, lesion at bifurcation: Yes, thrombus present: No, lesion length: 40 mm, culprit lesion: Yes, Previously treated lesion: No Pre Stenosis: 99 % Pre intervention KASSIE flow: 1 PROCEDURE: Drug Eluting Stent with pre dilatation. Post Stenosis: 0 % Post intervention KASSIE flow: 3 Lesion Devices: Cordis 6 Fr XB3.0 100cm Guide Catheter Arita .014 190cm BMW [place] Straight Biotronik Orsiro Mcgill MR NAWAF 2.5x40 Medtronic SC EUPHORA RX 2.25x15 BALLOON COMPLICATIONS No Complications PROCEDURE MEDICATIONS Fentanyl 50 mcg IV Versed 1 mg IV Versed 1 mg IV Oxygen: 2 L/min via nasal cannula Aspirin (325mg) 1 Tabs PO 12/02/2022 08:55:49 Brilinta 180 mg PO @ 12/02/2022 10:20:36 Heparin given IA 12/02/2022 09:01:20 Heparin 6000 unit(s) IV 12/02/2022 09:51:11 Nitro 200 mcg IC 12/02/2022 10:04:11 Nitro 200 mcg IC 12/02/2022 10:04:11 Verapamil 2.5mg, Ntg 100mcgs, 3000 units of Heparin given IA 12/02/2022 09:01:20 SUMMARY OF HEMODYNAMIC DATA Time AIR REST AO 145/72 (98) SA 09:01:51 LV 128/3, 13 09:07:49 LV 126/5, 12 09:07:55 LV 122/7, 12 09:08:38 LV 126/11, 25 09:08:39 LVp 142/11, 22 09:08:47 AOp 147/72 (100) 09:08:52 AO 175/23 (39) 09:52:40 AIR REST 10:57:56 Signed By Lanie Denny MD On 12/03/2022 13:51:46 Lanie Denny MD
== END 2022-12-03 09:41 | disposition home or self-care (01) | DRG 174 ==
LOC: ED 18:32 → PCU 18:45
PROVIDERS: Family Medicine; Specialist; Admitting Provider Hospitalist; Emergency Provider Emergency Medicine; PCP Internal Medicine; Visit Provider Student in an Organized Health Care Education/Training Program
DX: I21.4 Non-ST elevation (NSTEMI) myocardial infarction (principal); E11.42 Type 2 diabetes mellitus with diabetic polyneuropathy; I10 Essential (primary) hypertension; F17.210 Nicotine dependence, cigarettes, uncomplicated; I25.2 Old myocardial infarction; I25.10 Atherosclerotic heart disease of native coronary artery without angina pectoris; Z79.84 Long term (current) use of oral hypoglycemic drugs; Z79.899 Other long term (current) drug therapy; Z82.49 Family history of ischemic heart disease and other diseases of the circulatory system
CPT/HCPCS: 36415; 71045; 80048; 80053; 80061; 82962; 83036; 83690; 83735; 84443; 84484; 85025; 85027; 85610; 85730; 92928; 93005; 93306; 93458; 97802; 99152; 99153; 99285; C1874; J7030; J7040; Q9967; A4216; C1725; C1769; C1887; C1894; C9600; J1327; J2405

== ENCOUNTER 2024-05-09 12:52 | Emergency (ER) | payer MEDICAID, SELFPAY ==
[2024-05-09 12:53] VITALS: BP 198/93; PULSE 90; RESP 18; TEMP 36.7; O2SAT 99; BMI 27.0
--- NOTE | 2024-05-09 13:47 | ED.RN ---
pt refusing to answer questions regarding medical history. Pt states it's not relevant to my hand. Pt states How long is this going to be? 1 day 2 days 4 days? RN states well, it is an ER and we are very busy at this time. The Doctor will be in when they can.
--- NOTE | 2024-05-09 14:23 | EDS_ITS ---
HPI <HAYDEN Willett - Last Filed: 05/09/24 14:47> History of Present Illness Chief Complaint: Laceration Narrative Narrative: 58-year-old male states he was tinkering at home and cut his left palm on a new piece of metal pipe. He has a laceration on the palm. Bleeding is controlled with pressure. He is on Brilinta due to cardiac stents. He denies weakness or numbness or tingling. He states his tetanus is up-to-date. [facility] <HAYDEN Willett - Last Filed: 05/09/24 14:47> [facility] Medical History Anxiety Arthritis ASHD (arteriosclerotic heart disease) (12/01/22) Bulging disc Carotid bruit present Chest pain DDD (degenerative disc disease) Diabetes Hypertension Iliac artery occlusion Myocardial infarct Neuropathy Non-ST elevation myocardial infarction (NSTEMI), subendocardial infarction, subsequent episode of care Osteoporosis Preop cardiovascular exam Smoker Superficial femoral artery occlusion Home Medications ?Medication ?Instructions ?Recorded ?Last Taken ?Type duloxetine 30 mg capsule,delayed 60 mg PO DAILY pain 0 11/19/22 12/01/22 History release glipizide 5 mg tablet 10 mg PO DAILY diabetes 11/0112/01/22 07:28 History multivitamin (Daily Multi-Vitamin 1 tab PO DAILY suppl ement 12/01/22 12/01/22 07:30 History tablet) aspirin 81 mg tablet,delayed 81 mg PO DAILY #30 tabs 1 04/12/22 Unknown Rx release atorvastatin 80 mg tablet 80 mg PO QHS #30 tabs Unknown Rx carvedilol 6.25 mg tablet 6.25 mg PO BID #60 tabs 01/30 03/24 Unknown Rx lisinopril 10 mg tablet 10 mg PO DAILY #30 tabs 01/30 03/24 Unknown Rx ticagrelor 90 mg tablet (Brilinta) 90 mg PO BID #60 ta bs 02/09/23 Unknown Rx rosuvastatin 40 mg tablet 40 mg PO DAILY #90 tabs 04/03 08/23 Unknown Rx oxycodone-acetaminophen 7.5 mg-325 tab PO 05/08/23 Unk nown History mg tablet Allergy/AdvReac Type Severity Reaction Status Date / Time No Known Allergies Allergy Verified 05/09/24 12:53 Family History Father Diabetes Other NSTEMI, initial episode of care Stented coronary artery Surgical History Stented coronary artery (12/01/22) Social History household members: none current occupational status: employed Smoking Status: Current every day smoker tobacco type: cigarettes ROS <HAYDEN Willett - Last Filed: 05/09/24 14:47> ROS ED ROS Narrative Neuro: Negative for motor/sensory dysfunction. Skin: Positive for laceration. Musc: Negative for joint pain, swelling. EXAM <HAYDEN Willett - Last Filed: 05/09/24 14:47> Physical Exam Narrative Exam Narrative: CONST: Patient sitting in no acute distress. EYES: Normal inspection. SKIN: 2.5 cm linear laceration on the left mid palm. No active bleeding. No tendon involvement. EXTREMITIES: Normal appearance, full range of motion left wrist hand and digits. Normal motor and sensory function in median radial and ulnar distributions. 2+ radial pulse and brisk cap refill. NEURO: Alert and answering questions appropriately. PSYCH: Normal affect. Const Vital Signs: 05/09/24 12:53 Temperature 98.1 F Temperature Source Temporal Pulse Rate 90 Respiratory Rate 18 Blood Pressure 198/93 H Blood Pressure Mean 128 Pulse Ox 99 Oxygen Delivery Method Room Air MDM <HAYDEN Willett - Last Filed: 05/09/24 14:47> MDM MDM Narrative Medical decision making narrative: 58-year-old male with a 2.5 cm linear laceration on the left palm. There is no tendon or bone involvement. Neurovascularly intact. No need for x-rays. Tetanus is already up-to-date. I placed 4 simple interrupted sutures?see procedure note. Patient eloped prior to attending evaluation. <Dr. Panfilo Rueda DO - Last Filed: 05/09/24 15:24> [facility] Treatment and Re-Evaluation Narrative: Attending note: Patient was discussed with me, suturing by embedded software architect. Prior to my evaluation patient left the department. Procedures <HAYDEN Willett - Last Filed: 05/09/24 14:47> Lacerations Left palm: Length: 0.98 in Depth: Sub Q Shape: Linear Prep: Sterile Conditions Laceration repair: Irrigated, Lidocaine, Local and Wound explored Irrigated (ml): 150 Number of Sutures/[place]: 4 Suture Information: Ethilon and 4-0 Discharge Plan Triage Chief Complaint: Laceration ED Midlevel Provider: Makayla Rios ED Provider: Panfilo Rueda Dx/Rx/DC Orders Clinical Impression: Laceration of left palm Instructions: ED Laceration Extremity Prescriptions: No Action rosuvastatin 40 mg tablet 40 mg PO DAILY Qty: 90 3RF oxycodone-acetaminophen 7.5-325 mg tablet PO Patient Comments: Take 1 tablet by mouth every 6 hours as needed for pain for up to 7 days. Do not start before April 27, 2023. multivitamin [Daily Multi-Vitamin] Tablet 1 tab PO DAILY glipizide 5 mg tablet 10 mg PO DAILY Patient Comments: Take 1 tablet by mouth once daily. duloxetine 30 mg capsule,delayed release(DR/EC) 60 mg PO DAILY Patient Comments: Take 1 capsule by mouth once daily. Brilinta 90 mg tablet 90 mg PO BID Qty: 60 11RF lisinopril 10 mg tablet 10 mg PO DAILY Qty: 30 11RF carvedilol 6.25 mg tablet 6.25 mg PO BID Qty: 60 11RF atorvastatin 80 mg tablet 80 mg PO QHS Qty: 30 11RF aspirin 81 mg tablet,delayed release (DR/EC) 81 mg PO DAILY Qty: 30 11RF Primary Care Provider: Care Physician,No Primary Referrals: Daniela Hernandez TOOL SETTER APPRENTICE, TOOL SETTER APPRENTICE-C [Non-Staff -Ordering Privileges] - Activity Restrictions/Additional Instructions: Keep the area clean. The stitches need removed in 1 week. If any signs of infection develop redness, swelling, pus, increased pain or fever please be seen immediately. Print Language: Wolof Disposition Disposition: Home, Self Care Discharge Date/Time: 05/09/24 14:33
--- NOTE | 2024-05-09 14:29 | ED.RN ---
patient refused to wait for discharge paperwork.
== END 2024-05-09 14:33 | disposition home or self-care (01) ==
LOC: ED 14:29
PROVIDERS: Emergency Provider Emergency Medicine; Visit Provider Emergency Medicine
DX: S61.412A Laceration without foreign body of left hand, initial encounter (principal); E11.40 Type 2 diabetes mellitus with diabetic neuropathy, unspecified; Y92.009 Unspecified place in unspecified non-institutional (private) residence as the place of occurrence of the external cause; W26.8XXA Contact with other sharp object(s), not elsewhere classified, initial encounter; I25.10 Atherosclerotic heart disease of native coronary artery without angina pectoris; I10 Essential (primary) hypertension; F17.210 Nicotine dependence, cigarettes, uncomplicated; I25.2 Old myocardial infarction; Z79.82 Long term (current) use of aspirin; Z79.84 Long term (current) use of oral hypoglycemic drugs; Z79.02 Long term (current) use of antithrombotics/antiplatelets; Z79.899 Other long term (current) drug therapy; Z95.5 Presence of coronary angioplasty implant and graft
CPT/HCPCS: 12001; 99282